=== PATIENT | male | born 1975 | race Caucasian/White ===

== ENCOUNTER 2023-06-09 05:05 | Inpatient (IN) | payer OTHER ==
[2023-06-09] MEDS ORDERED: PIPERACILLIN/TAZOB 4.5 GM 4.5 GM in DEXTROSE 5%-WATER 100 ML IVPB ONE (05:57)
[2023-06-09] MEDS ORDERED: VANCOMYCIN 1,000 MG in DEXTROSE 5%-WATER - 250 ML IVPB ONE (05:57)
[2023-06-09] MEDS ORDERED: SODIUM CHLORIDE 0.9% 500 ML INFUS.BAG IV ONE ×2 (06:01→06:49)
[2023-06-09] MEDS ORDERED: ACETAMINOPHEN 1000 MG/100 ML BAG IVPB ONE (06:01)
[2023-06-09] MEDS ORDERED: PIPERACILLIN/TAZOB 4.5 GM 4.5 GM/100 ML BAG IVPB ONE (06:20)
[2023-06-09] MEDS ORDERED: ACETAMINOPHEN INJECTION 100 ML IVPB ONE ×2 (06:20→18:02)
[2023-06-09 06:32] LABS: HEMATOCRIT 28.8 % (35.4-49); HEMOGLOBIN 9.5 GM/dL (11.7-16.9); MCH 32.3 pg (25.7-33.7); MCHC 33.1 g/dl (32.0-35.9); MEAN CELL VOLUME 97.7 fl (80-96); MEAN PLT VOLUME 8.2 fl (7.5-11.1); PLATELET COUNT 278 10^3/uL (134-434); RBC 2.95 M/mm3 (4.00-5.60); RDW 13.1 % (11.9-15.9); WHITE BLOOD COUNT 17.7 K/mm3 (4.0-10.0)
[2023-06-09 06:43] LABS: INR 1.37 (0.83-1.09); PROTHROMBIN TIME (PATIENT) 15.8 SEC (9.7-13.0)
[2023-06-09 06:44] LABS: ACTIVATED PTT 35.9 SECONDS (25.2-36.5)
[2023-06-09 07:05] LABS: CHLORIDE 107 mmol/L (98-107); POTASSIUM 5.5 mmol/L (3.5-5.1); SODIUM 135 mmol/L (136-145)
[2023-06-09 07:07] LABS: CALCIUM 7.3 mg/dL (8.5-10.1)
[2023-06-09 07:09] LABS: ALBUMIN 1.3 g/dl (3.4-5.0); ANION GAP 7 mmol/L (4-13); BLOOD UREA NITROGEN 40.6 mg/dL (7-18); CO2 20 mmol/L (21-32); GLUCOSE,RANDOM 94 mg/dL (74-106)
[2023-06-09 07:11] LABS: CREATININE 2.2 mg/dL (0.55-1.3); SGOT/AST 39 U/L (15-37); SGPT/ALT 35 U/L (13-61)
[2023-06-09 07:13] LABS: BILIRUBIN,TOTAL 0.5 mg/dL (0.2-1)
[2023-06-09 07:15] LABS: ALK PHOS 858 U/L (45-117)
[2023-06-09] MEDS ORDERED: VANCOMYCIN 1 GRAM (PRE-DOCKED) 1,000 MG/250 ML BAG IVPB ONE ×2 (07:44→07:54)
[2023-06-09 08:34] LABS: EPI CELLS >36 /uL (0-25.1); HYALINE CASTS 4 /uL (0-3.1); PH,URINE 5.5 (5.0-8.0); URINE APPEARANCE CLOUDY; URINE BACTERIA 9 /uL (0-1359); URINE BILIRUBIN NEGATIVE (NEGATIVE); URINE COLOR YELLOW; URINE GLUCOSE (UA) 1+ (NEGATIVE); URINE KETONE TRACE (NEGATIVE); URINE LEUK ESTERASE NEGATIVE (NEGATIVE); URINE NITRITE NEGATIVE (NEGATIVE); URINE PROTEIN 4+ (NEGATIVE); URINE UROBILINOGEN 0.2 mg/dL (0.2-1.0); URINE WBC 50 /uL (0-25.8)
[2023-06-09 08:52] LABS: URINE CRYSTALS NEGATIVE /hpf; URINE RBC 51.8 /uL (0-23.9)
[2023-06-09 09:31] LABS: ANISOCYTOSIS 1+; MACROCYTOSIS 0
[2023-06-09 10:26] LABS: CALCIUM 7.1 mg/dL (8.5-10.1); POTASSIUM 5.1 mmol/L (3.5-5.1)
[2023-06-09 10:27] LABS: BLOOD UREA NITROGEN 37.2 mg/dL (7-18)
[2023-06-09 10:30] LABS: CREATININE 2.1 mg/dL (0.55-1.3)
[2023-06-09] MEDS ORDERED: PIPERACILLIN/TAZOB 2.25 GM 2.25 GM/50 ML BAG IVPB ONE (13:56)
[2023-06-09] MEDS ORDERED: VANCOMYCIN 1,000 MG VIAL (RESTRICTED TO ID ONLY) IVPB ONE (14:00)
[2023-06-09] MEDS ORDERED: ACETAMINOPHEN 1000 MG/100 ML BAG IVPB PRN (14:27)
[2023-06-09] MEDS ORDERED: PIPERACILLIN/TAZOB 2.25 GM 2.25 GM in DEXTROSE 5%-WATER - 50 ML IVPB SCH ×2 (15:00→21:00)
[2023-06-09] MEDS ORDERED: LIDOCAINE HCL 1%, 10 MG/ML (20ML VIAL) ONE (15:05)
[2023-06-09] MEDS ORDERED: BUPIVACAINE HCL/PF 0.5% (5MG/ML) 10 ML VIAL ONE (15:06)
[2023-06-09] MEDS ORDERED: MIDAZOLAM HCL 2 MG/2 ML SINGLE DOSE VIAL ONE ×2 (15:29→15:36)
[2023-06-09] MEDS ORDERED: PROPOFOL 20 ML ONE ×2 (15:29→15:59)
[2023-06-09] MEDS ORDERED: BUPIVACAINE HCL/PF 0.5% (5 MG/ML) 30 ML VIAL IJ ONE (15:30)
[2023-06-09] MEDS ORDERED: LIDOCAINE HCL 1%, 10 MG/ML (20ML VIAL) INF ONE (15:30)
[2023-06-09] MEDS ORDERED: VANCOMYCIN/WATER FOR INJ (PEG) 1,000 MG/200 ML BAG IVPB SCH (15:45)
[2023-06-09] MEDS ORDERED: THROMBIN (BOVINE) 5,000 UNIT VIAL TP ONE (16:00)
[2023-06-09] MEDS ORDERED: GENTAMICIN SO4 80 MG/2 ML VIAL ONE (16:05)
[2023-06-09] MEDS ORDERED: VANCOMYCIN 1,000 MG VIAL (RESTRICTED TO ID ONLY) ONE (16:14)
[2023-06-09] MEDS ORDERED: LACTATED RINGERS SOLUTION 1,000 ML IV SCH (16:45)
[2023-06-09 17:44] LABS: HEMATOCRIT 28.1 % (35.4-49); HEMOGLOBIN 9.4 GM/dL (11.7-16.9); MCH 32.2 pg (25.7-33.7); MCHC 33.3 g/dl (32.0-35.9); MEAN CELL VOLUME 96.5 fl (80-96); PLATELET COUNT 243 10^3/uL (134-434); RBC 2.91 M/mm3 (4.00-5.60); RDW 13.5 % (11.9-15.9); WHITE BLOOD COUNT 20.5 K/mm3 (4.0-10.0)
[2023-06-09] MEDS ORDERED: FENTANYL CITRATE/PF 50 MCG/ML VIAL ONE ×2 (17:48→17:55)
[2023-06-09] MEDS: ACETAMINOPHEN 1000 MG/100 ML BAG IVPB PRN (18:02)
[2023-06-09 18:23] LABS: ANISOCYTOSIS 0; MACROCYTOSIS 0; OVALOCYTE 1+; PLATELET ESTIMATE NORMAL; TEAR DROP CELLS 1+
[2023-06-09] MEDS: PIPERACILLIN/TAZOB 2.25 GM 2.25 GM in DEXTROSE 5%-WATER - 50 ML IVPB SCH (22:07)
[2023-06-10] MEDS: PIPERACILLIN/TAZOB 2.25 GM 2.25 GM in DEXTROSE 5%-WATER - 50 ML IVPB SCH ×3 (02:30→22:41)
[2023-06-10] MEDS: ACETAMINOPHEN 1000 MG/100 ML BAG IVPB PRN (04:06)
[2023-06-10] MEDS ORDERED: VANCOMYCIN/WATER FOR INJ (PEG) 1,000 MG/200 ML BAG IVPB SCH ×2 (08:00→14:00)
[2023-06-10 09:25] LABS: HEMATOCRIT 25.6 % (35.4-49); HEMOGLOBIN 8.7 GM/dL (11.7-16.9); MCH 32.9 pg (25.7-33.7); MEAN CELL VOLUME 96.7 fl (80-96); MEAN PLT VOLUME 8.7 fl (7.5-11.1); PLATELET COUNT 232 10^3/uL (134-434); RBC 2.65 M/mm3 (4.00-5.60); RDW 13.4 % (11.9-15.9); WHITE BLOOD COUNT 19.5 K/mm3 (4.0-10.0)
[2023-06-10 09:51] LABS: POTASSIUM 5.1 mmol/L (3.5-5.1)
[2023-06-10 10:19] LABS: ALBUMIN 1.1 g/dl (3.4-5.0); BLOOD UREA NITROGEN 39.9 mg/dL (7-18); CALCIUM 7.4 mg/dL (8.5-10.1); MAGNESIUM 2.5 mg/dL (1.8-2.4)
[2023-06-10 10:22] LABS: CREATININE 2.3 mg/dL (0.55-1.3); PHOSPHOROUS 4.9 mg/dL (2.5-4.9)
[2023-06-10 10:23] LABS: BILIRUBIN,TOTAL 0.8 mg/dL (0.2-1); TOT PROT 5.3 g/dl (6.4-8.2)
[2023-06-10] MEDS ORDERED: VANCOMYCIN 1,000 MG in DEXTROSE 5%-WATER - 250 ML IVPB SCH (15:15)
[2023-06-11] MEDS: PIPERACILLIN/TAZOB 2.25 GM 2.25 GM in DEXTROSE 5%-WATER - 50 ML IVPB SCH ×3 (02:33→14:02)
[2023-06-11] MEDS: LACTOBACILLUS ACIDOPHILUS 1 TABLET PO SCH (09:08)
[2023-06-11] MEDS: VITAMIN B COMP W-C 1 EA TABLET (NEPHRO-VITE) PO SCH (09:08)
[2023-06-11 09:44] LABS: BASO % 0.3 % (0-2.0); EOS % 2.3 % (0-4.5); HEMATOCRIT 24.5 % (35.4-49); LYMPH % 6.6 % (8-40); MCH 32.5 pg (25.7-33.7); MCHC 32.6 g/dl (32.0-35.9); MEAN CELL VOLUME 99.8 fl (80-96); MEAN PLT VOLUME 7.6 fl (7.5-11.1); MONO % 3.9 % (3.8-10.2); NEUT % 86.9 % (42.8-82.8); PLATELET COUNT 230 10^3/uL (134-434); RBC 2.46 M/mm3 (4.00-5.60); RDW 13.4 % (11.9-15.9); WHITE BLOOD COUNT 11.2 K/mm3 (4.0-10.0)
[2023-06-11 10:19] LABS: POTASSIUM 4.7 mmol/L (3.5-5.1)
[2023-06-11 10:26] LABS: BLOOD UREA NITROGEN 34.7 mg/dL (7-18)
[2023-06-11 10:27] LABS: ALBUMIN 1.1 g/dl (3.4-5.0); BILIRUBIN,TOTAL 0.5 mg/dL (0.2-1); PHOSPHOROUS 4.1 mg/dL (2.5-4.9)
[2023-06-11 10:28] LABS: TOT PROT 5.3 g/dl (6.4-8.2)
[2023-06-11 10:29] LABS: CALCIUM 7.7 mg/dL (8.5-10.1); CREATININE 2.5 mg/dL (0.55-1.3)
[2023-06-11 10:30] LABS: MAGNESIUM 2.4 mg/dL (1.8-2.4)
[2023-06-11] MEDS ORDERED: VANCOMYCIN/WATER FOR INJ (PEG) 1,000 MG/200 ML BAG IVPB ONE (13:00)
[2023-06-11] MEDS ORDERED: FUROSEMIDE 40 MG/4 ML INJECTABLE VIAL IVPUSH ONE (13:15)
[2023-06-11] MEDS ORDERED: ACETAMINOPHEN 1000 MG/100 ML BAG IVPB PRN (18:54)
[2023-06-11] MEDS: HEPARIN NA (PORCINE) 5,000 UNITS/ML 1ML VIAL SQ SCH (22:24)
[2023-06-12 09:10] LABS: HEMATOCRIT 24.9 % (35.4-49); HEMOGLOBIN 8.1 GM/dL (11.7-16.9); MCH 32.4 pg (25.7-33.7); MCHC 32.8 g/dl (32.0-35.9); MEAN PLT VOLUME 8.1 fl (7.5-11.1); PLATELET COUNT 237 10^3/uL (134-434); RBC 2.51 M/mm3 (4.00-5.60); RDW 13.2 % (11.9-15.9); WHITE BLOOD COUNT 7.7 K/mm3 (4.0-10.0)
[2023-06-12] MEDS: HEPARIN NA (PORCINE) 5,000 UNITS/ML 1ML VIAL SQ SCH ×2 (09:16→22:12)
[2023-06-12] MEDS: PIPERACILLIN/TAZOB 2.25 GM 2.25 GM in DEXTROSE 5%-WATER - 50 ML IVPB SCH ×2 (09:16→14:02)
[2023-06-12] MEDS: LACTOBACILLUS ACIDOPHILUS 1 TABLET PO SCH (09:16)
[2023-06-12] MEDS: VITAMIN B COMP W-C 1 EA TABLET (NEPHRO-VITE) PO SCH (09:16)
[2023-06-12 09:18] LABS: POTASSIUM 4.7 mmol/L (3.5-5.1)
[2023-06-12 09:23] LABS: ALBUMIN 1.1 g/dl (3.4-5.0)
[2023-06-12 09:24] LABS: BLOOD UREA NITROGEN 37.6 mg/dL (7-18); CALCIUM 7.4 mg/dL (8.5-10.1); MAGNESIUM 2.5 mg/dL (1.8-2.4)
[2023-06-12 09:26] LABS: CREATININE 2.1 mg/dL (0.55-1.3)
[2023-06-12 09:27] LABS: PHOSPHOROUS 3.9 mg/dL (2.5-4.9)
[2023-06-12 09:28] LABS: BILIRUBIN,TOTAL 0.5 mg/dL (0.2-1); TOT PROT 5.6 g/dl (6.4-8.2)
[2023-06-12] MEDS ORDERED: ACETAMINOPHEN 500 MG TABLET (FP) PO PRN (11:30)
[2023-06-13 09:45] LABS: HEMOGLOBIN 7.6 GM/dL (11.7-16.9); MCH 32.5 pg (25.7-33.7); MCHC 33.2 g/dl (32.0-35.9); MEAN CELL VOLUME 97.9 fl (80-96); MEAN PLT VOLUME 7.8 fl (7.5-11.1); PLATELET COUNT 242 10^3/uL (134-434); RBC 2.35 M/mm3 (4.00-5.60); RDW 13.2 % (11.9-15.9); WHITE BLOOD COUNT 6.2 K/mm3 (4.0-10.0)
[2023-06-13] MEDS: HEPARIN NA (PORCINE) 5,000 UNITS/ML 1ML VIAL SQ SCH ×2 (10:06→22:37)
[2023-06-13] MEDS: LACTOBACILLUS ACIDOPHILUS 1 TABLET PO SCH (10:07)
[2023-06-13] MEDS: VITAMIN B COMP W-C 1 EA TABLET (NEPHRO-VITE) PO SCH (10:07)
[2023-06-13 10:08] LABS: POTASSIUM 4.8 mmol/L (3.5-5.1)
[2023-06-13 10:14] LABS: BLOOD UREA NITROGEN 33.7 mg/dL (7-18)
[2023-06-13 10:16] LABS: CREATININE 1.9 mg/dL (0.55-1.3)
[2023-06-13 10:41] LABS: CALCIUM 7.5 mg/dL (8.5-10.1)
[2023-06-13] MEDS ORDERED: VANCOMYCIN/WATER FOR INJ (PEG) 1,000 MG/200 ML BAG IVPB ONE (16:00)
[2023-06-13] MEDS: PIPERACILLIN/TAZOB 2.25 GM 2.25 GM in DEXTROSE 5%-WATER - 50 ML IVPB SCH (18:30)
[2023-06-13 21:08] LABS: ANTIGLOMERULAR BASEMENT MEN.AB 0.2 units (0.0-0.9)
[2023-06-14] MEDS: PIPERACILLIN/TAZOB 2.25 GM 2.25 GM in DEXTROSE 5%-WATER - 50 ML IVPB SCH ×3 (01:11→17:32)
[2023-06-14 09:19] LABS: BASO % 0.6 % (0-2.0); EOS % 7.1 % (0-4.5); HEMATOCRIT 20.9 % (35.4-49); HEMOGLOBIN 7.1 GM/dL (11.7-16.9); LYMPH % 13.6 % (8-40); MCH 32.2 pg (25.7-33.7); MCHC 33.7 g/dl (32.0-35.9); MEAN CELL VOLUME 95.5 fl (80-96); MEAN PLT VOLUME 7.5 fl (7.5-11.1); MONO % 5.6 % (3.8-10.2); NEUT % 73.1 % (42.8-82.8); PLATELET COUNT 219 10^3/uL (134-434); RBC 2.19 M/mm3 (4.00-5.60); RDW 13.4 % (11.9-15.9); WHITE BLOOD COUNT 5.6 K/mm3 (4.0-10.0)
[2023-06-14 10:03] LABS: POTASSIUM 4.5 mmol/L (3.5-5.1)
[2023-06-14 10:12] LABS: BILIRUBIN,TOTAL 0.6 mg/dL (0.2-1); TOT PROT 5.3 g/dl (6.4-8.2)
[2023-06-14 10:21] LABS: CALCIUM 7.6 mg/dL (8.5-10.1)
[2023-06-14 10:22] LABS: ALBUMIN 1.2 g/dl (3.4-5.0); BLOOD UREA NITROGEN 33.8 mg/dL (7-18)
[2023-06-14 10:24] LABS: CREATININE 1.8 mg/dL (0.55-1.3)
[2023-06-14] MEDS: LACTOBACILLUS ACIDOPHILUS 1 TABLET PO SCH (11:43)
[2023-06-14] MEDS: VITAMIN B COMP W-C 1 EA TABLET (NEPHRO-VITE) PO SCH (11:43)
[2023-06-14] MEDS: HEPARIN NA (PORCINE) 5,000 UNITS/ML 1ML VIAL SQ SCH (11:43)
[2023-06-14] MEDS: SODIUM BICARBONATE 650 MG TABLET PO SCH ×2 (14:20→22:04)
[2023-06-14 16:30] VITALS: BMI 30.8
[2023-06-14] MEDS: amLODIPine BESYLATE 10 MG TABLET (FP) PO SCH (17:29)
[2023-06-14 17:44] LABS: HIV INTERPRETATION NEGATIVE (NEGATIVE)
[2023-06-14 18:01] LABS: RETICULOCYTES 0.74 % (0.5-1.5)
[2023-06-14 18:07] LABS: ATYPICAL pANCA <1:20 titer (Neg:<1:20); C-ANCA <1:20 titer (Neg:<1:20)
[2023-06-15] MEDS: PIPERACILLIN/TAZOB 2.25 GM 2.25 GM in DEXTROSE 5%-WATER - 50 ML IVPB SCH ×3 (01:18→17:07)
[2023-06-15] MEDS ORDERED: FLU VACCINE (FLULAVAL) PF 60 MCG/0.5 ML SYRINGE 2023-2024 IM ONE (09:38)
[2023-06-15 10:42] LABS: BASO % 0.9 % (0-2.0); EOS % 8.6 % (0-4.5); HEMATOCRIT 22.7 % (35.4-49); HEMOGLOBIN 7.4 GM/dL (11.7-16.9); LYMPH % 14.3 % (8-40); MCH 31.9 pg (25.7-33.7); MCHC 32.6 g/dl (32.0-35.9); MEAN CELL VOLUME 97.9 fl (80-96); MEAN PLT VOLUME 7.7 fl (7.5-11.1); MONO % 6.8 % (3.8-10.2); NEUT % 69.4 % (42.8-82.8); PLATELET COUNT 227 10^3/uL (134-434); RBC 2.32 M/mm3 (4.00-5.60); RDW 13.2 % (11.9-15.9); WHITE BLOOD COUNT 4.8 K/mm3 (4.0-10.0)
[2023-06-15 11:02] LABS: POTASSIUM 4.1 mmol/L (3.5-5.1)
[2023-06-15] MEDS: LACTOBACILLUS ACIDOPHILUS 1 TABLET PO SCH (11:05)
[2023-06-15] MEDS: SODIUM BICARBONATE 650 MG TABLET PO SCH ×2 (11:05→21:34)
[2023-06-15] MEDS: VITAMIN B COMP W-C 1 EA TABLET (NEPHRO-VITE) PO SCH (11:05)
[2023-06-15] MEDS: amLODIPine BESYLATE 10 MG TABLET (FP) PO SCH (11:05)
[2023-06-15 11:09] LABS: CALCIUM 7.2 mg/dL (8.5-10.1)
[2023-06-15 11:10] LABS: ALBUMIN 1.2 g/dl (3.4-5.0); BLOOD UREA NITROGEN 34.7 mg/dL (7-18); MAGNESIUM 2.3 mg/dL (1.8-2.4)
[2023-06-15 11:13] LABS: CREATININE 1.9 mg/dL (0.55-1.3); PHOSPHOROUS 3.5 mg/dL (2.5-4.9)
[2023-06-15 11:14] LABS: BILIRUBIN,TOTAL 0.4 mg/dL (0.2-1); TOT PROT 5.4 g/dl (6.4-8.2)
[2023-06-15] MEDS: LISINOPRIL 5 MG TABLET PO SCH (13:21)
[2023-06-16] MEDS: PIPERACILLIN/TAZOB 2.25 GM 2.25 GM in DEXTROSE 5%-WATER - 50 ML IVPB SCH ×3 (01:52→17:38)
[2023-06-16 08:18] LABS: BASO % 1.1 % (0-2.0); EOS % 9.3 % (0-4.5); HEMATOCRIT 23.9 % (35.4-49); LYMPH % 15.2 % (8-40); MCH 32.7 pg (25.7-33.7); MCHC 33.6 g/dl (32.0-35.9); MEAN CELL VOLUME 97.2 fl (80-96); MEAN PLT VOLUME 7.7 fl (7.5-11.1); MONO % 5.2 % (3.8-10.2); NEUT % 69.2 % (42.8-82.8); PLATELET COUNT 287 10^3/uL (134-434); RBC 2.46 M/mm3 (4.00-5.60); RDW 13.3 % (11.9-15.9); WHITE BLOOD COUNT 6.9 K/mm3 (4.0-10.0)
[2023-06-16 08:37] LABS: POTASSIUM 4.1 mmol/L (3.5-5.1)
[2023-06-16 08:51] LABS: ALBUMIN 1.4 g/dl (3.4-5.0); BLOOD UREA NITROGEN 35.7 mg/dL (7-18)
[2023-06-16 08:52] LABS: BILIRUBIN,TOTAL 0.4 mg/dL (0.2-1)
[2023-06-16 08:53] LABS: CALCIUM 7.4 mg/dL (8.5-10.1)
[2023-06-16 08:54] LABS: CREATININE 2.1 mg/dL (0.55-1.3); PHOSPHOROUS 3.7 mg/dL (2.5-4.9)
[2023-06-16 08:55] LABS: MAGNESIUM 2.3 mg/dL (1.8-2.4)
[2023-06-16 09:04] LABS: TOT PROT 5.6 g/dl (6.4-8.2)
[2023-06-16] MEDS: SODIUM BICARBONATE 650 MG TABLET PO SCH ×2 (09:51→22:32)
[2023-06-16] MEDS: amLODIPine BESYLATE 10 MG TABLET (FP) PO SCH (09:51)
[2023-06-16] MEDS: LACTOBACILLUS ACIDOPHILUS 1 TABLET PO SCH (09:51)
[2023-06-16] MEDS: LISINOPRIL 5 MG TABLET PO SCH (09:51)
[2023-06-16] MEDS: VITAMIN B COMP W-C 1 EA TABLET (NEPHRO-VITE) PO SCH (09:51)
[2023-06-17] MEDS: PIPERACILLIN/TAZOB 2.25 GM 2.25 GM in DEXTROSE 5%-WATER - 50 ML IVPB SCH ×3 (01:58→18:01)
[2023-06-17] MEDS: VITAMIN B COMP W-C 1 EA TABLET (NEPHRO-VITE) PO SCH (09:45)
[2023-06-17] MEDS: amLODIPine BESYLATE 10 MG TABLET (FP) PO SCH (09:45)
[2023-06-17] MEDS: LISINOPRIL 5 MG TABLET PO SCH (09:45)
[2023-06-17] MEDS: LACTOBACILLUS ACIDOPHILUS 1 TABLET PO SCH (09:45)
[2023-06-17] MEDS: SODIUM BICARBONATE 650 MG TABLET PO SCH ×2 (09:45→21:06)
[2023-06-17 10:51] LABS: BASO % 1.5 % (0-2.0); EOS % 9.8 % (0-4.5); HEMATOCRIT 23.3 % (35.4-49); HEMOGLOBIN 7.7 GM/dL (11.7-16.9); LYMPH % 16.6 % (8-40); MCH 32.1 pg (25.7-33.7); MEAN CELL VOLUME 97.3 fl (80-96); MEAN PLT VOLUME 7.8 fl (7.5-11.1); NEUT % 66.1 % (42.8-82.8); PLATELET COUNT 298 10^3/uL (134-434); RBC 2.39 M/mm3 (4.00-5.60); RDW 13.4 % (11.9-15.9); WHITE BLOOD COUNT 5.4 K/mm3 (4.0-10.0)
[2023-06-17 11:09] LABS: POTASSIUM 3.9 mmol/L (3.5-5.1)
[2023-06-17 11:20] LABS: CALCIUM 7.8 mg/dL (8.5-10.1)
[2023-06-17 11:21] LABS: ALBUMIN 1.4 g/dl (3.4-5.0)
[2023-06-17 11:23] LABS: CREATININE 2.2 mg/dL (0.55-1.3); PHOSPHOROUS 3.8 mg/dL (2.5-4.9)
[2023-06-17 11:41] LABS: MAGNESIUM 2.5 mg/dL (1.8-2.4)
[2023-06-17 12:02] LABS: BILIRUBIN,TOTAL 0.3 mg/dL (0.2-1)
[2023-06-17] MEDS: ALBUMIN HUMAN 25% 12.5 GM/50 ML VIAL IV SCH ×4 (19:55→21:33)
[2023-06-17 21:02] LABS: BF WBC & OTHER NUCLEATED CELLS 181 /mm3; BODY FLUID MACROPHAGES 2 %; BODY FLUID MESOTHELIAL 5 %; BODY FLUID MONOCYTE 30 %
[2023-06-18] MEDS: PIPERACILLIN/TAZOB 2.25 GM 2.25 GM in DEXTROSE 5%-WATER - 50 ML IVPB SCH ×3 (05:57→17:53)
[2023-06-18 10:08] LABS: BASO % 1.4 % (0-2.0); EOS % 7.9 % (0-4.5); HEMATOCRIT 22.8 % (35.4-49); HEMOGLOBIN 7.7 GM/dL (11.7-16.9); LYMPH % 16.9 % (8-40); MCH 32.3 pg (25.7-33.7); MCHC 33.7 g/dl (32.0-35.9); MEAN PLT VOLUME 7.6 fl (7.5-11.1); MONO % 5.3 % (3.8-10.2); NEUT % 68.5 % (42.8-82.8); PLATELET COUNT 281 10^3/uL (134-434); RBC 2.37 M/mm3 (4.00-5.60); RDW 13.7 % (11.9-15.9); WHITE BLOOD COUNT 5.2 K/mm3 (4.0-10.0)
[2023-06-18] MEDS: LISINOPRIL 5 MG TABLET PO SCH (10:21)
[2023-06-18] MEDS: amLODIPine BESYLATE 10 MG TABLET (FP) PO SCH (10:21)
[2023-06-18] MEDS: LACTOBACILLUS ACIDOPHILUS 1 TABLET PO SCH (10:21)
[2023-06-18] MEDS: VITAMIN B COMP W-C 1 EA TABLET (NEPHRO-VITE) PO SCH (10:21)
[2023-06-18] MEDS: SODIUM BICARBONATE 650 MG TABLET PO SCH ×2 (10:21→21:17)
[2023-06-18 10:28] LABS: BLOOD UREA NITROGEN 40.8 mg/dL (7-18); CALCIUM 7.6 mg/dL (8.5-10.1); MAGNESIUM 2.5 mg/dL (1.8-2.4)
[2023-06-18 10:31] LABS: CREATININE 2.3 mg/dL (0.55-1.3); PHOSPHOROUS 3.8 mg/dL (2.5-4.9)
[2023-06-18 10:33] LABS: BILIRUBIN,TOTAL 0.4 mg/dL (0.2-1); TOT PROT 6.2 g/dl (6.4-8.2)
[2023-06-18 10:37] LABS: ALBUMIN 1.8 g/dl (3.4-5.0)
[2023-06-19] MEDS: PIPERACILLIN/TAZOB 2.25 GM 2.25 GM in DEXTROSE 5%-WATER - 50 ML IVPB SCH ×3 (01:34→17:15)
[2023-06-19 07:14] VITALS: RESP 18
[2023-06-19] MEDS: LISINOPRIL 5 MG TABLET PO SCH (09:00)
[2023-06-19] MEDS: LACTOBACILLUS ACIDOPHILUS 1 TABLET PO SCH (09:00)
[2023-06-19] MEDS: amLODIPine BESYLATE 10 MG TABLET (FP) PO SCH (09:00)
[2023-06-19] MEDS: VITAMIN B COMP W-C 1 EA TABLET (NEPHRO-VITE) PO SCH (09:00)
[2023-06-19] MEDS: SODIUM BICARBONATE 650 MG TABLET PO SCH ×2 (09:00→21:31)
[2023-06-19 09:03] LABS: BASO % 1.4 % (0-2.0); EOS % 7.7 % (0-4.5); HEMATOCRIT 20.3 % (35.4-49); LYMPH % 18.8 % (8-40); MCH 32.9 pg (25.7-33.7); MCHC 34.6 g/dl (32.0-35.9); MEAN CELL VOLUME 95.1 fl (80-96); MEAN PLT VOLUME 7.9 fl (7.5-11.1); MONO % 6.1 % (3.8-10.2); PLATELET COUNT 250 10^3/uL (134-434); RBC 2.14 M/mm3 (4.00-5.60); RDW 13.7 % (11.9-15.9); WHITE BLOOD COUNT 5.3 K/mm3 (4.0-10.0)
[2023-06-19 09:05] LABS: POTASSIUM 4.4 mmol/L (3.5-5.1)
[2023-06-19 09:07] LABS: CALCIUM 7.6 mg/dL (8.5-10.1)
[2023-06-19 09:08] LABS: ALBUMIN 1.7 g/dl (3.4-5.0)
[2023-06-19 09:11] LABS: CREATININE 2.6 mg/dL (0.55-1.3)
[2023-06-19 09:12] LABS: BILIRUBIN,TOTAL 0.5 mg/dL (0.2-1)
[2023-06-19 09:13] LABS: TOT PROT 5.7 g/dl (6.4-8.2)
[2023-06-20] MEDS: PIPERACILLIN/TAZOB 2.25 GM 2.25 GM in DEXTROSE 5%-WATER - 50 ML IVPB SCH ×3 (01:21→19:58)
[2023-06-20] MEDS: SODIUM BICARBONATE 650 MG TABLET PO SCH ×2 (09:42→21:00)
[2023-06-20] MEDS: LACTOBACILLUS ACIDOPHILUS 1 TABLET PO SCH (09:42)
[2023-06-20] MEDS: amLODIPine BESYLATE 10 MG TABLET (FP) PO SCH (09:42)
[2023-06-20] MEDS: VITAMIN B COMP W-C 1 EA TABLET (NEPHRO-VITE) PO SCH (09:42)
[2023-06-20] MEDS: LISINOPRIL 5 MG TABLET PO SCH (09:42)
[2023-06-20 16:39] LABS: BASO % 1.1 % (0-2.0); EOS % 5.5 % (0-4.5); HEMATOCRIT 23.1 % (35.4-49); HEMOGLOBIN 7.9 GM/dL (11.7-16.9); LYMPH % 11.8 % (8-40); MCH 32.6 pg (25.7-33.7); MCHC 34.2 g/dl (32.0-35.9); MEAN CELL VOLUME 95.5 fl (80-96); MEAN PLT VOLUME 7.7 fl (7.5-11.1); MONO % 7.1 % (3.8-10.2); NEUT % 74.5 % (42.8-82.8); PLATELET COUNT 290 10^3/uL (134-434); RBC 2.42 M/mm3 (4.00-5.60); RDW 14.1 % (11.9-15.9)
[2023-06-20] MEDS ORDERED: ACETAMINOPHEN 325 MG TABLET (FP) PO ONE (23:16)
[2023-06-21] MEDS: PIPERACILLIN/TAZOB 2.25 GM 2.25 GM in DEXTROSE 5%-WATER - 50 ML IVPB SCH (02:13)
[2023-06-21] MEDS ORDERED: levoFLOXacin 750 MG TABLET PO SCH (08:15)
[2023-06-21] MEDS ORDERED: AMOX TR/POT CLAV 500MG/125MG TABLETS (FP) PO SCH (08:24)
[2023-06-21] MEDS ORDERED: PHYTONADIONE 10 MG/1 ML AMP IVPB ONE (09:15)
[2023-06-21 09:39] LABS: BASO % 0.8 % (0-2.0); EOS % 4.9 % (0-4.5); HEMATOCRIT 20.5 % (35.4-49); HEMOGLOBIN 7.1 GM/dL (11.7-16.9); LYMPH % 12.9 % (8-40); MCH 33.2 pg (25.7-33.7); MCHC 34.6 g/dl (32.0-35.9); MEAN CELL VOLUME 95.9 fl (80-96); MONO % 5.7 % (3.8-10.2); NEUT % 75.7 % (42.8-82.8); PLATELET COUNT 262 10^3/uL (134-434); RBC 2.14 M/mm3 (4.00-5.60); WHITE BLOOD COUNT 8.4 K/mm3 (4.0-10.0)
[2023-06-21 09:44] LABS: POTASSIUM 4.2 mmol/L (3.5-5.1)
[2023-06-21 09:51] LABS: ALBUMIN 1.6 g/dl (3.4-5.0); CALCIUM 7.8 mg/dL (8.5-10.1); MAGNESIUM 2.5 mg/dL (1.8-2.4)
[2023-06-21 09:54] LABS: BLOOD UREA NITROGEN 40.9 mg/dL (7-18)
[2023-06-21 09:55] LABS: CREATININE 2.4 mg/dL (0.55-1.3)
[2023-06-21 09:56] LABS: BILIRUBIN,TOTAL 0.7 mg/dL (0.2-1); TOT PROT 5.8 g/dl (6.4-8.2)
[2023-06-21] MEDS: LISINOPRIL 5 MG TABLET PO SCH (10:06)
[2023-06-21] MEDS: SODIUM BICARBONATE 650 MG TABLET PO SCH (10:06)
[2023-06-21] MEDS: VITAMIN B COMP W-C 1 EA TABLET (NEPHRO-VITE) PO SCH (10:06)
[2023-06-21] MEDS: amLODIPine BESYLATE 10 MG TABLET (FP) PO SCH (10:06)
[2023-06-21] MEDS: LACTOBACILLUS ACIDOPHILUS 1 TABLET PO SCH (10:07)
[2023-06-21] MEDS ORDERED: LISINOPRIL 5 MG TABLET PO ONE (11:30)
[2023-06-21 15:12] LABS: BODY FLUID ALBUMIN 0.5 g/dL (Not Estab.)
[2023-06-21 15:25] VITALS: BP 151/83; PULSE 97; TEMP 98.4
[2023-06-22] MEDS ORDERED: LISINOPRIL 10 MG TABLET PO SCH (10:00)
== END 2023-06-21 14:51 | disposition home or self-care (01) | DRG 710 ==
LOC: JER 05:05 → JERBED 07:53 → J5S 19:55
PROVIDERS: ADMIT Internal Medicine; ATTEND Internal Medicine
PROC: 0W9G3ZZ Drainage of Peritoneal Cavity, Percutaneous Approach (ICD-10-PCS; 2023-06-09)
PROC: 0Y6P0Z0 Detachment at Right 1st Toe, Complete, Open Approach (ICD-10-PCS; principal; 2023-06-09 15:30)
DX: A41.89 Other specified sepsis (principal); I96 Gangrene, not elsewhere classified; N17.9 Acute kidney failure, unspecified; J90 Pleural effusion, not elsewhere classified; E87.5 Hyperkalemia; E11.22 Type 2 diabetes mellitus with diabetic chronic kidney disease; D68.9 Coagulation defect, unspecified; D89.2 Hypergammaglobulinemia, unspecified; K70.31 Alcoholic cirrhosis of liver with ascites; D64.9 Anemia, unspecified; M86.8X7 Other osteomyelitis, ankle and foot; L03.031 Cellulitis of right toe; B95.61 Methicillin susceptible Staphylococcus aureus infection as the cause of diseases classified elsewhere; B95.2 Enterococcus as the cause of diseases classified elsewhere; I12.9 Hypertensive chronic kidney disease with stage 1 through stage 4 chronic kidney disease, or unspecified chronic kidney disease; N18.9 Chronic kidney disease, unspecified; R80.9 Proteinuria, unspecified; K80.20 Calculus of gallbladder without cholecystitis without obstruction; R74.8 Abnormal levels of other serum enzymes
CPT/HCPCS: 0241U-QW; 36415; 71045-TC-FY; 73590-TC-RT-FY; 73630-TC-RT-FY; 74181-TC; 76700-TC; 76775-TC; 76942-TC; 80048; 80053; 80061; 81003; 82042; 82105; 82150; 82272; 82465; 82550; 82570; 82607; 82728; 82746; 82962; 82977; 83036; 83516; 83520; 83540; 83550; 83615; 83735; 83880; 83986; 84080; 84100; 84156; 84157; 84443; 84466; 84478; 85025; 85027; 85045; 85610; 85651; 85730; 86038; 86140; 86225; 86256; 86704; 86803; 86850; 86900; 86901; 87040; 87070; 87075; 87086; 87102; 87116; 87186; 87205; 87206; 87210; 87340; 87389; 87517; 88108; 88305-TC; 88311-TC; 90686; 93005; 93010; 93306-TC; 93926-TC; 94760; 97116-GP; 99285-25; C1713; G0008; G0480; J1644; P9047

== ENCOUNTER 2023-06-29 14:12 | Inpatient (IN) | payer OTHER ==
[2023-06-29 14:23] VITALS: BMI 26.3
[2023-06-29] MEDS ORDERED: PIPERACILLIN/TAZOB 4.5 GM 4.5 GM in DEXTROSE 5%-WATER 100 ML IVPB ONE (14:56)
[2023-06-29 15:36] LABS: BASO % 1.3 % (0-2.0); EOS % 7.3 % (0-4.5); HEMATOCRIT 22.2 % (35.4-49); HEMOGLOBIN 7.2 GM/dL (11.7-16.9); LYMPH % 10.6 % (8-40); MCHC 32.3 g/dl (32.0-35.9); MEAN CELL VOLUME 98.9 fl (80-96); MEAN PLT VOLUME 8.5 fl (7.5-11.1); MONO % 5.8 % (3.8-10.2); PLATELET COUNT 265 10^3/uL (134-434); RBC 2.25 M/mm3 (4.00-5.60); RDW 14.5 % (11.9-15.9); WHITE BLOOD COUNT 6.8 K/mm3 (4.0-10.0)
[2023-06-29 15:44] LABS: INR 1.18 (0.83-1.09); PROTHROMBIN TIME (PATIENT) 13.7 SEC (9.7-13.0)
[2023-06-29 15:47] LABS: ACTIVATED PTT 35.5 SECONDS (25.2-36.5)
[2023-06-29] MEDS ORDERED: PIPERACILLIN/TAZOB 4.5 GM 4.5 GM/100 ML BAG IVPB ONE (15:50)
[2023-06-29 16:08] LABS: CHLORIDE 118 mmol/L (98-107); SODIUM 138 mmol/L (136-145)
[2023-06-29 16:10] LABS: BLOOD UREA NITROGEN 34.9 mg/dL (7-18); CO2 19 mmol/L (21-32); GLUCOSE,RANDOM 94 mg/dL (74-106)
[2023-06-29 16:11] LABS: ALBUMIN 1.8 g/dl (3.4-5.0)
[2023-06-29 16:12] LABS: ANION GAP 0 mmol/L (4-13); POTASSIUM 8.1 mmol/L (3.5-5.1)
[2023-06-29 16:14] LABS: CREATININE 2.3 mg/dL (0.55-1.3); SGOT/AST 70 U/L (15-37); SGPT/ALT 25 U/L (13-61)
[2023-06-29 16:15] LABS: BILIRUBIN,TOTAL 0.3 mg/dL (0.2-1); TOT PROT 6.6 g/dl (6.4-8.2)
[2023-06-29 16:59] LABS: ALK PHOS 515 U/L (45-117)
[2023-06-29 17:38] LABS: CREATININE 2.2 mg/dL (0.55-1.3)
[2023-06-29] MEDS ORDERED: DEXTROSE 50%-WATER - 25 GM/50 ML VIAL IVPUSH ONE (17:44)
[2023-06-29] MEDS ORDERED: INSULIN REGULAR HUMAN 100 UNITS/ML *VIAL IVPUSH ONE (17:46)
[2023-06-29] MEDS ORDERED: ALBUTEROL SO4 0.083% IH SOL 2.5 MG/3 ML VIAL.NEB. NEB ONE ×2 (17:47→18:56)
[2023-06-29] MEDS ORDERED: DEXTROSE 50%-WATER 25 GM/50 ML DISP.SYRIN ONE (18:57)
[2023-06-29] MEDS ORDERED: SODIUM ZIRCONIUM CYCLOSILICATE (LOKELMA) 10 GM PACKET ONE (20:18)
[2023-06-29] MEDS ORDERED: SODIUM ZIRCONIUM CYCLOSILICATE (LOKELMA) 5 GM PACKET PO ONE (20:30)
[2023-06-29 20:59] LABS: EPI CELLS 8 /uL (0-25.1); HYALINE CASTS 1 /uL (0-3.1); URINE APPEARANCE CLEAR; URINE BACTERIA 9 /uL (0-1359); URINE BILIRUBIN NEGATIVE (NEGATIVE); URINE COLOR YELLOW; URINE GLUCOSE (UA) TRACE (NEGATIVE); URINE KETONE NEGATIVE (NEGATIVE); URINE LEUK ESTERASE NEGATIVE (NEGATIVE); URINE NITRITE NEGATIVE (NEGATIVE); URINE PROTEIN 4+ (NEGATIVE); URINE RBC 49 /uL (0-23.9); URINE UROBILINOGEN 0.2 mg/dL (0.2-1.0); URINE WBC 31 /uL (0-25.8)
[2023-06-29] MEDS ORDERED: FUROSEMIDE 40 MG/4 ML INJECTABLE VIAL IVPUSH ONE (22:56)
[2023-06-29] MEDS: SODIUM ZIRCONIUM CYCLOSILICATE (LOKELMA) 5 GM PACKET PO SCH (23:34)
[2023-06-30 03:13] LABS: POTASSIUM 5.5 mmol/L (3.5-5.1)
[2023-06-30 03:16] LABS: ALBUMIN 1.9 g/dl (3.4-5.0); BLOOD UREA NITROGEN 32.7 mg/dL (7-18); MAGNESIUM 2.6 mg/dL (1.8-2.4)
[2023-06-30 03:19] LABS: CREATININE 2.1 mg/dL (0.55-1.3); PHOSPHOROUS 4.9 mg/dL (2.5-4.9)
[2023-06-30 03:20] LABS: BILIRUBIN,TOTAL 0.3 mg/dL (0.2-1); TOT PROT 6.4 g/dl (6.4-8.2)
[2023-06-30] MEDS: HEPARIN NA (PORCINE) 5,000 UNITS/ML 1ML VIAL SQ SCH ×3 (06:47→21:01)
[2023-06-30 06:53] LABS: POTASSIUM 5.5 mmol/L (3.5-5.1)
[2023-06-30 06:57] LABS: BLOOD UREA NITROGEN 32.1 mg/dL (7-18)
[2023-06-30 07:00] LABS: CREATININE 2.1 mg/dL (0.55-1.3)
[2023-06-30 07:02] LABS: BASO % 1.3 % (0-2.0); EOS % 13.6 % (0-4.5); HEMATOCRIT 20.7 % (35.4-49); LYMPH % 15.5 % (8-40); MCH 32.4 pg (25.7-33.7); MCHC 32.9 g/dl (32.0-35.9); MEAN CELL VOLUME 98.7 fl (80-96); MEAN PLT VOLUME 8.2 fl (7.5-11.1); MONO % 7.5 % (3.8-10.2); NEUT % 62.1 % (42.8-82.8); PLATELET COUNT 230 10^3/uL (134-434); RDW 14.2 % (11.9-15.9); WHITE BLOOD COUNT 5.8 K/mm3 (4.0-10.0)
[2023-06-30 07:17] LABS: HEMOGLOBIN 6.8 GM/dL (11.7-16.9)
[2023-06-30] MEDS ORDERED: PIPERACILLIN/TAZOB 3.375 GM 3.375 GM in DEXTROSE 5%-WATER - 50 ML IVPB SCH (09:00)
[2023-06-30] MEDS ORDERED: amLODIPine BESYLATE 5 MG TABLET (FP) PO SCH (10:00)
[2023-06-30] MEDS: SODIUM ZIRCONIUM CYCLOSILICATE (LOKELMA) 5 GM PACKET PO SCH (10:15)
[2023-06-30] MEDS: LACTOBACILLUS ACIDOPHILUS 1 TABLET PO SCH (10:15)
[2023-06-30] MEDS: VITAMIN B COMP W-C 1 EA TABLET (NEPHRO-VITE) PO SCH (10:15)
[2023-06-30] MEDS: SODIUM BICARBONATE 650 MG TABLET PO SCH ×2 (10:15→21:02)
[2023-06-30] MEDS: COLLAGENASE CLOSTRIDIUM HIST. 30 GRAMS TUBE TP SCH (12:54)
[2023-06-30] MEDS: PIPERACILLIN/TAZOB 2.25 GM 2.25 GM in DEXTROSE 5%-WATER - 50 ML IVPB SCH (17:30)
[2023-06-30] MEDS ORDERED: SODIUM ZIRCONIUM CYCLOSILICATE (LOKELMA) 5 GM PACKET PO ONE (17:49)
[2023-06-30] MEDS: NYSTATIN 100,000 UNIT/GM TOPICAL CREAM 15 GM TUBE TP SCH (21:14)
[2023-07-01] MEDS: PIPERACILLIN/TAZOB 2.25 GM 2.25 GM in DEXTROSE 5%-WATER - 50 ML IVPB SCH ×3 (01:22→17:53)
[2023-07-01] MEDS: HEPARIN NA (PORCINE) 5,000 UNITS/ML 1ML VIAL SQ SCH ×2 (05:58→14:08)
[2023-07-01 08:23] LABS: HEMATOCRIT 23.4 % (35.4-49); HEMOGLOBIN 7.8 GM/dL (11.7-16.9); MCH 32.4 pg (25.7-33.7); MCHC 33.5 g/dl (32.0-35.9); MEAN CELL VOLUME 96.6 fl (80-96); MEAN PLT VOLUME 8.3 fl (7.5-11.1); PLATELET COUNT 228 10^3/uL (134-434); RBC 2.42 M/mm3 (4.00-5.60); RDW 16.1 % (11.9-15.9); WHITE BLOOD COUNT 5.3 K/mm3 (4.0-10.0)
[2023-07-01 09:16] LABS: POTASSIUM 5.4 mmol/L (3.5-5.1)
[2023-07-01 09:25] LABS: CALCIUM 7.9 mg/dL (8.5-10.1)
[2023-07-01 09:26] LABS: ALBUMIN 1.7 g/dl (3.4-5.0)
[2023-07-01 09:29] LABS: CREATININE 2.2 mg/dL (0.55-1.3)
[2023-07-01 09:30] LABS: TOT PROT 5.6 g/dl (6.4-8.2)
[2023-07-01 09:31] LABS: BILIRUBIN,TOTAL 0.5 mg/dL (0.2-1)
[2023-07-01] MEDS: SODIUM BICARBONATE 650 MG TABLET PO SCH ×2 (09:39→21:07)
[2023-07-01] MEDS: NYSTATIN 100,000 UNIT/GM TOPICAL CREAM 15 GM TUBE TP SCH ×2 (09:39→21:07)
[2023-07-01] MEDS: LACTOBACILLUS ACIDOPHILUS 1 TABLET PO SCH (09:39)
[2023-07-01] MEDS: amLODIPine BESYLATE 10 MG TABLET (FP) PO SCH (09:39)
[2023-07-01] MEDS: VITAMIN B COMP W-C 1 EA TABLET (NEPHRO-VITE) PO SCH (09:39)
[2023-07-01] MEDS: SODIUM ZIRCONIUM CYCLOSILICATE (LOKELMA) 5 GM PACKET PO SCH (09:39)
[2023-07-01] MEDS: COLLAGENASE CLOSTRIDIUM HIST. 30 GRAMS TUBE TP SCH (09:40)
[2023-07-01] MEDS: FUROSEMIDE 40 MG TABLET (FP) PO SCH (14:08)
[2023-07-01] MEDS: PANTOPRAZOLE SODIUM 40 MG VIAL IVPUSH SCH (21:07)
[2023-07-01] MEDS ORDERED: ACETAMINOPHEN 1000 MG/100 ML BAG IVPB ONE (23:33)
[2023-07-02] MEDS: PIPERACILLIN/TAZOB 2.25 GM 2.25 GM in DEXTROSE 5%-WATER - 50 ML IVPB SCH ×3 (01:22→17:11)
[2023-07-02 07:56] LABS: HEMATOCRIT 23.2 % (35.4-49); HEMOGLOBIN 7.9 GM/dL (11.7-16.9); MCH 32.3 pg (25.7-33.7); MCHC 34.2 g/dl (32.0-35.9); MEAN CELL VOLUME 94.4 fl (80-96); PLATELET COUNT 231 10^3/uL (134-434); RBC 2.45 M/mm3 (4.00-5.60); RDW 15.9 % (11.9-15.9); WHITE BLOOD COUNT 5.4 K/mm3 (4.0-10.0)
[2023-07-02 07:58] LABS: POTASSIUM 4.8 mmol/L (3.5-5.1)
[2023-07-02 08:00] LABS: CALCIUM 7.5 mg/dL (8.5-10.1)
[2023-07-02 08:01] LABS: ALBUMIN 1.7 g/dl (3.4-5.0); BLOOD UREA NITROGEN 30.3 mg/dL (7-18)
[2023-07-02 08:04] LABS: CREATININE 2.6 mg/dL (0.55-1.3)
[2023-07-02 08:06] LABS: TOT PROT 5.8 g/dl (6.4-8.2)
[2023-07-02 08:09] LABS: BILIRUBIN,TOTAL 0.3 mg/dL (0.2-1)
[2023-07-02] MEDS: FUROSEMIDE 40 MG TABLET (FP) PO SCH (09:25)
[2023-07-02] MEDS: PANTOPRAZOLE SODIUM 40 MG VIAL IVPUSH SCH ×2 (09:25→21:05)
[2023-07-02] MEDS: SODIUM BICARBONATE 650 MG TABLET PO SCH ×2 (09:25→21:05)
[2023-07-02] MEDS: SODIUM ZIRCONIUM CYCLOSILICATE (LOKELMA) 5 GM PACKET PO SCH (09:25)
[2023-07-02] MEDS: amLODIPine BESYLATE 10 MG TABLET (FP) PO SCH (09:25)
[2023-07-02] MEDS: LACTOBACILLUS ACIDOPHILUS 1 TABLET PO SCH (09:26)
[2023-07-02] MEDS: COLLAGENASE CLOSTRIDIUM HIST. 30 GRAMS TUBE TP SCH (09:26)
[2023-07-02] MEDS: NYSTATIN 100,000 UNIT/GM TOPICAL CREAM 15 GM TUBE TP SCH ×2 (09:26→21:05)
[2023-07-02] MEDS: VITAMIN B COMP W-C 1 EA TABLET (NEPHRO-VITE) PO SCH (09:26)
[2023-07-03] MEDS: PIPERACILLIN/TAZOB 2.25 GM 2.25 GM in DEXTROSE 5%-WATER - 50 ML IVPB SCH ×3 (03:00→17:07)
[2023-07-03] MEDS: AMINO ACIDS/PROTEIN HYDROLYS 30 ML LIQUID.PKT PO SCH ×2 (07:57→17:07)
[2023-07-03 08:11] LABS: HEMOGLOBIN 7.7 GM/dL (11.7-16.9); MCH 32.3 pg (25.7-33.7); MCHC 33.7 g/dl (32.0-35.9); MEAN PLT VOLUME 7.8 fl (7.5-11.1); PLATELET COUNT 225 10^3/uL (134-434); RDW 15.6 % (11.9-15.9); WHITE BLOOD COUNT 5.7 K/mm3 (4.0-10.0)
[2023-07-03 08:20] LABS: POTASSIUM 4.5 mmol/L (3.5-5.1)
[2023-07-03 08:29] LABS: CALCIUM 7.6 mg/dL (8.5-10.1)
[2023-07-03 08:30] LABS: ALBUMIN 1.7 g/dl (3.4-5.0); BLOOD UREA NITROGEN 29.4 mg/dL (7-18)
[2023-07-03 08:33] LABS: CREATININE 2.6 mg/dL (0.55-1.3)
[2023-07-03 08:34] LABS: BILIRUBIN,TOTAL 0.5 mg/dL (0.2-1); TOT PROT 5.6 g/dl (6.4-8.2)
[2023-07-03] MEDS: NYSTATIN 100,000 UNIT/GM TOPICAL CREAM 15 GM TUBE TP SCH ×3 (09:35→21:42)
[2023-07-03] MEDS: COLLAGENASE CLOSTRIDIUM HIST. 30 GRAMS TUBE TP SCH ×2 (09:35→10:50)
[2023-07-03] MEDS: SODIUM BICARBONATE 650 MG TABLET PO SCH ×2 (09:36→21:42)
[2023-07-03] MEDS: amLODIPine BESYLATE 10 MG TABLET (FP) PO SCH (09:36)
[2023-07-03] MEDS: LACTOBACILLUS ACIDOPHILUS 1 TABLET PO SCH (09:36)
[2023-07-03] MEDS: VITAMIN B COMP W-C 1 EA TABLET (NEPHRO-VITE) PO SCH (09:36)
[2023-07-03] MEDS: PANTOPRAZOLE SODIUM 40 MG VIAL IVPUSH SCH ×2 (09:36→21:42)
[2023-07-04] MEDS: PIPERACILLIN/TAZOB 2.25 GM 2.25 GM in DEXTROSE 5%-WATER - 50 ML IVPB SCH ×3 (03:25→17:45)
[2023-07-04] MEDS: AMINO ACIDS/PROTEIN HYDROLYS 30 ML LIQUID.PKT PO SCH ×2 (09:03→17:45)
[2023-07-04 09:34] LABS: BASO % 1.1 % (0-2.0); EOS % 11.2 % (0-4.5); HEMATOCRIT 23.1 % (35.4-49); HEMOGLOBIN 7.7 GM/dL (11.7-16.9); LYMPH % 21.9 % (8-40); MCHC 33.3 g/dl (32.0-35.9); MEAN CELL VOLUME 96.2 fl (80-96); MEAN PLT VOLUME 7.9 fl (7.5-11.1); MONO % 6.4 % (3.8-10.2); NEUT % 59.4 % (42.8-82.8); PLATELET COUNT 222 10^3/uL (134-434); RDW 15.2 % (11.9-15.9); WHITE BLOOD COUNT 5.4 K/mm3 (4.0-10.0)
[2023-07-04 09:39] LABS: INR 1.11 (0.83-1.09); PROTHROMBIN TIME (PATIENT) 12.9 SEC (9.7-13.0)
[2023-07-04 09:56] LABS: POTASSIUM 4.3 mmol/L (3.5-5.1)
[2023-07-04] MEDS: NYSTATIN 100,000 UNIT/GM TOPICAL CREAM 15 GM TUBE TP SCH ×2 (09:57→21:59)
[2023-07-04] MEDS: SODIUM BICARBONATE 650 MG TABLET PO SCH ×2 (09:58→22:00)
[2023-07-04] MEDS: amLODIPine BESYLATE 10 MG TABLET (FP) PO SCH (09:58)
[2023-07-04] MEDS: LACTOBACILLUS ACIDOPHILUS 1 TABLET PO SCH (09:58)
[2023-07-04] MEDS: VITAMIN B COMP W-C 1 EA TABLET (NEPHRO-VITE) PO SCH (09:58)
[2023-07-04] MEDS: PANTOPRAZOLE SODIUM 40 MG VIAL IVPUSH SCH (09:58)
[2023-07-04 10:02] LABS: ALBUMIN 1.8 g/dl (3.4-5.0)
[2023-07-04 10:03] LABS: BLOOD UREA NITROGEN 33.5 mg/dL (7-18)
[2023-07-04 10:05] LABS: CREATININE 2.5 mg/dL (0.55-1.3)
[2023-07-04 10:07] LABS: BILIRUBIN,TOTAL 0.4 mg/dL (0.2-1); TOT PROT 5.8 g/dl (6.4-8.2)
[2023-07-04 10:09] LABS: CALCIUM 8.9 mg/dL (8.5-10.1)
[2023-07-04] MEDS: COLLAGENASE CLOSTRIDIUM HIST. 30 GRAMS TUBE TP SCH (10:28)
[2023-07-04] MEDS: LISINOPRIL 5 MG TABLET PO SCH (16:19)
[2023-07-05] MEDS: PIPERACILLIN/TAZOB 2.25 GM 2.25 GM in DEXTROSE 5%-WATER - 50 ML IVPB SCH ×4 (03:54→17:31)
[2023-07-05] MEDS: AMINO ACIDS/PROTEIN HYDROLYS 30 ML LIQUID.PKT PO SCH ×2 (08:22→16:52)
[2023-07-05 09:03] LABS: BASO % 1.1 % (0-2.0); EOS % 11.1 % (0-4.5); HEMATOCRIT 23.2 % (35.4-49); HEMOGLOBIN 8.1 GM/dL (11.7-16.9); LYMPH % 22.1 % (8-40); MCH 32.7 pg (25.7-33.7); MCHC 34.9 g/dl (32.0-35.9); MEAN CELL VOLUME 93.7 fl (80-96); MEAN PLT VOLUME 7.7 fl (7.5-11.1); MONO % 6.2 % (3.8-10.2); NEUT % 59.5 % (42.8-82.8); PLATELET COUNT 228 10^3/uL (134-434); RBC 2.48 M/mm3 (4.00-5.60); RDW 15.2 % (11.9-15.9); WHITE BLOOD COUNT 5.7 K/mm3 (4.0-10.0)
[2023-07-05 09:14] LABS: POTASSIUM 4.1 mmol/L (3.5-5.1)
[2023-07-05] MEDS: LISINOPRIL 5 MG TABLET PO SCH (09:18)
[2023-07-05] MEDS: VITAMIN B COMP W-C 1 EA TABLET (NEPHRO-VITE) PO SCH (09:18)
[2023-07-05] MEDS: SODIUM BICARBONATE 650 MG TABLET PO SCH ×2 (09:18→22:21)
[2023-07-05] MEDS: LACTOBACILLUS ACIDOPHILUS 1 TABLET PO SCH (09:18)
[2023-07-05] MEDS: amLODIPine BESYLATE 10 MG TABLET (FP) PO SCH (09:18)
[2023-07-05 09:19] LABS: ALBUMIN 1.8 g/dl (3.4-5.0)
[2023-07-05 09:20] LABS: BLOOD UREA NITROGEN 35.8 mg/dL (7-18); CALCIUM 7.6 mg/dL (8.5-10.1); MAGNESIUM 2.4 mg/dL (1.8-2.4)
[2023-07-05 09:22] LABS: CREATININE 2.4 mg/dL (0.55-1.3); PHOSPHOROUS 4.5 mg/dL (2.5-4.9)
[2023-07-05 09:24] LABS: BILIRUBIN,TOTAL 0.3 mg/dL (0.2-1); TOT PROT 5.9 g/dl (6.4-8.2)
[2023-07-05] MEDS: NYSTATIN 100,000 UNIT/GM TOPICAL CREAM 15 GM TUBE TP SCH ×2 (09:57→22:21)
[2023-07-05] MEDS: COLLAGENASE CLOSTRIDIUM HIST. 30 GRAMS TUBE TP SCH (09:57)
[2023-07-05] MEDS ORDERED: BISACODYL 5 MG TABLET.DR (FP) PO ONE (16:00)
[2023-07-05] MEDS ORDERED: PEG 3350/NA SULF BICARB CL/KCL 4000 ML SOLN.RECON PO ONE (17:00)
[2023-07-06] MEDS: PIPERACILLIN/TAZOB 2.25 GM 2.25 GM in DEXTROSE 5%-WATER - 50 ML IVPB SCH (02:12)
[2023-07-06] MEDS: AMINO ACIDS/PROTEIN HYDROLYS 30 ML LIQUID.PKT PO SCH ×2 (09:06→17:15)
[2023-07-06] MEDS: COLLAGENASE CLOSTRIDIUM HIST. 30 GRAMS TUBE TP SCH (09:56)
[2023-07-06] MEDS: LISINOPRIL 5 MG TABLET PO SCH (09:56)
[2023-07-06] MEDS: amLODIPine BESYLATE 10 MG TABLET (FP) PO SCH (09:56)
[2023-07-06] MEDS: LACTOBACILLUS ACIDOPHILUS 1 TABLET PO SCH (09:56)
[2023-07-06] MEDS: NYSTATIN 100,000 UNIT/GM TOPICAL CREAM 15 GM TUBE TP SCH ×2 (09:56→21:54)
[2023-07-06] MEDS: SODIUM BICARBONATE 650 MG TABLET PO SCH ×2 (09:56→21:53)
[2023-07-06] MEDS: VITAMIN B COMP W-C 1 EA TABLET (NEPHRO-VITE) PO SCH (09:56)
[2023-07-06 10:44] LABS: BASO % 1.7 % (0-2.0); EOS % 11.1 % (0-4.5); HEMOGLOBIN 8.3 GM/dL (11.7-16.9); LYMPH % 17.8 % (8-40); MCH 32.5 pg (25.7-33.7); MCHC 34.8 g/dl (32.0-35.9); MEAN CELL VOLUME 93.4 fl (80-96); MONO % 6.4 % (3.8-10.2); PLATELET COUNT 210 10^3/uL (134-434); RBC 2.57 M/mm3 (4.00-5.60); RDW 15.2 % (11.9-15.9); WHITE BLOOD COUNT 4.7 K/mm3 (4.0-10.0)
[2023-07-06 11:40] LABS: CALCIUM 8.1 mg/dL (8.5-10.1)
[2023-07-06 11:41] LABS: BLOOD UREA NITROGEN 35.1 mg/dL (7-18)
[2023-07-06 11:44] LABS: CREATININE 2.1 mg/dL (0.55-1.3)
[2023-07-06] MEDS ORDERED: SIMETHICONE 40 MG/0.6 ML BOTTLE ONE (14:36)
[2023-07-07] MEDS: AMINO ACIDS/PROTEIN HYDROLYS 30 ML LIQUID.PKT PO SCH ×2 (08:05→16:38)
[2023-07-07 09:17] LABS: BASO % 1.3 % (0-2.0); EOS % 13.4 % (0-4.5); HEMOGLOBIN 8.6 GM/dL (11.7-16.9); LYMPH % 19.4 % (8-40); MCH 32.4 pg (25.7-33.7); MCHC 34.5 g/dl (32.0-35.9); MEAN CELL VOLUME 93.9 fl (80-96); MEAN PLT VOLUME 8.2 fl (7.5-11.1); MONO % 5.8 % (3.8-10.2); NEUT % 60.1 % (42.8-82.8); PLATELET COUNT 240 10^3/uL (134-434); RBC 2.66 M/mm3 (4.00-5.60); RDW 15.1 % (11.9-15.9); WHITE BLOOD COUNT 6.1 K/mm3 (4.0-10.0)
[2023-07-07 09:22] LABS: INR 1.1 (0.83-1.09); PROTHROMBIN TIME (PATIENT) 12.7 SEC (9.7-13.0)
[2023-07-07] MEDS: LISINOPRIL 5 MG TABLET PO SCH (09:43)
[2023-07-07] MEDS: VITAMIN B COMP W-C 1 EA TABLET (NEPHRO-VITE) PO SCH (09:44)
[2023-07-07] MEDS: amLODIPine BESYLATE 10 MG TABLET (FP) PO SCH (09:44)
[2023-07-07] MEDS: LACTOBACILLUS ACIDOPHILUS 1 TABLET PO SCH (09:44)
[2023-07-07] MEDS: NYSTATIN 100,000 UNIT/GM TOPICAL CREAM 15 GM TUBE TP SCH ×2 (09:45→21:50)
[2023-07-07] MEDS: COLLAGENASE CLOSTRIDIUM HIST. 30 GRAMS TUBE TP SCH (09:45)
[2023-07-07] MEDS: SODIUM BICARBONATE 650 MG TABLET PO SCH ×2 (09:45→21:50)
[2023-07-07 09:48] LABS: POTASSIUM 4.2 mmol/L (3.5-5.1)
[2023-07-07 09:56] LABS: ALBUMIN 1.9 g/dl (3.4-5.0); CREATININE 2.1 mg/dL (0.55-1.3)
[2023-07-07 09:57] LABS: BILIRUBIN,TOTAL 0.2 mg/dL (0.2-1); BLOOD UREA NITROGEN 35.1 mg/dL (7-18)
[2023-07-07 09:58] LABS: TOT PROT 6.1 g/dl (6.4-8.2)
[2023-07-07 09:59] LABS: CALCIUM 8.3 mg/dL (8.5-10.1)
[2023-07-07] MEDS ORDERED: ACETAMINOPHEN 325 MG TABLET (FP) PO PRN (17:41)
[2023-07-08] MEDS ORDERED: GENTAMICIN SO4 80 MG/2 ML VIAL ONE (07:17)
[2023-07-08] MEDS ORDERED: VANCOMYCIN 1,000 MG VIAL (RESTRICTED TO ID ONLY) ONE (07:17)
[2023-07-08] MEDS ORDERED: LIDOCAINE HCL 1%, 10 MG/ML (20ML VIAL) ONE (07:17)
[2023-07-08] MEDS ORDERED: BUPIVACAINE HCL/PF 0.5% (5MG/ML) 10 ML VIAL ONE (07:18)
[2023-07-08] MEDS ORDERED: PROPOFOL 40 ML ONE (07:19)
[2023-07-08] MEDS ORDERED: GENTAMICIN SO4 80 MG/2 ML VIAL IVPB ONE (07:33)
[2023-07-08] MEDS ORDERED: LIDOCAINE HCL 1%, 10 MG/ML (20ML VIAL) NR ONE (07:36)
[2023-07-08] MEDS ORDERED: MIDAZOLAM HCL 2 MG/2 ML SINGLE DOSE VIAL ONE (07:38)
[2023-07-08] MEDS ORDERED: BUPIVACAINE HCL/PF 0.5% (5MG/ML) 10 ML VIAL IJ ONE (07:41)
[2023-07-08] MEDS ORDERED: FENTANYL CITRATE/PF 50 MCG/ML VIAL ONE (07:44)
[2023-07-08] MEDS ORDERED: THROMBIN (BOVINE) 5,000 UNIT VIAL TP ONE ×2 (07:48→08:00)
[2023-07-08] MEDS ORDERED: VANCOMYCIN 1,000 MG VIAL (RESTRICTED TO ID ONLY) IVPB ONE (08:10)
[2023-07-08] MEDS: AMINO ACIDS/PROTEIN HYDROLYS 30 ML LIQUID.PKT PO SCH ×2 (08:13→18:22)
[2023-07-08] MEDS ORDERED: VANCOMYCIN 1 GM in NS (PRE-DOCKED) 1,000 MG/250 ML (RESTRICTED TO ID ONLY) IVPB ONE (08:39)
[2023-07-08] MEDS ORDERED: hydrALAZINE HCL 20 MG/ML VIAL ONE (08:44)
[2023-07-08] MEDS ORDERED: ONDANSETRON 4 MG/2 ML VIAL IVPUSH PRN (08:52)
[2023-07-08] MEDS ORDERED: LACTATED RINGERS SOLUTION 1,000 ML IV SCH (09:00)
[2023-07-08 10:32] LABS: EOS % 11.8 % (0-4.5); HEMATOCRIT 23.3 % (35.4-49); HEMOGLOBIN 7.9 GM/dL (11.7-16.9); LYMPH % 19.6 % (8-40); MCH 32.3 pg (25.7-33.7); MCHC 34.1 g/dl (32.0-35.9); MEAN PLT VOLUME 8.3 fl (7.5-11.1); MONO % 7.5 % (3.8-10.2); NEUT % 60.1 % (42.8-82.8); PLATELET COUNT 204 10^3/uL (134-434); RBC 2.45 M/mm3 (4.00-5.60); WHITE BLOOD COUNT 6.3 K/mm3 (4.0-10.0)
[2023-07-08] MEDS: LISINOPRIL 5 MG TABLET PO SCH (10:49)
[2023-07-08] MEDS: SODIUM BICARBONATE 650 MG TABLET PO SCH ×2 (10:49→21:27)
[2023-07-08] MEDS: LACTOBACILLUS ACIDOPHILUS 1 TABLET PO SCH (10:49)
[2023-07-08] MEDS: VITAMIN B COMP W-C 1 EA TABLET (NEPHRO-VITE) PO SCH (10:49)
[2023-07-08] MEDS: amLODIPine BESYLATE 10 MG TABLET (FP) PO SCH (10:49)
[2023-07-08] MEDS: NYSTATIN 100,000 UNIT/GM TOPICAL CREAM 15 GM TUBE TP SCH ×2 (13:17→21:28)
[2023-07-08 13:26] LABS: BASO % 1.1 % (0-2.0); EOS % 9.4 % (0-4.5); HEMATOCRIT 23.9 % (35.4-49); HEMOGLOBIN 8.1 GM/dL (11.7-16.9); LYMPH % 14.6 % (8-40); MCH 32.6 pg (25.7-33.7); MEAN CELL VOLUME 95.9 fl (80-96); MEAN PLT VOLUME 8.4 fl (7.5-11.1); MONO % 8.1 % (3.8-10.2); NEUT % 66.8 % (42.8-82.8); PLATELET COUNT 204 10^3/uL (134-434); RBC 2.49 M/mm3 (4.00-5.60); RDW 15.4 % (11.9-15.9); WHITE BLOOD COUNT 7.7 K/mm3 (4.0-10.0)
[2023-07-08 13:54] LABS: POTASSIUM 3.9 mmol/L (3.5-5.1)
[2023-07-08 13:57] LABS: ALBUMIN 1.9 g/dl (3.4-5.0); BLOOD UREA NITROGEN 38.2 mg/dL (7-18)
[2023-07-08 13:59] LABS: CREATININE 2.1 mg/dL (0.55-1.3)
[2023-07-08 14:01] LABS: TOT PROT 5.8 g/dl (6.4-8.2)
[2023-07-08 14:02] LABS: BILIRUBIN,TOTAL 0.2 mg/dL (0.2-1)
[2023-07-08] MEDS: PIPERACILLIN/TAZOB 2.25 GM 2.25 GM in DEXTROSE 5%-WATER - 50 ML IVPB SCH (14:16)
[2023-07-08] MEDS: ACETAMINOPHEN 325 MG TABLET (FP) PO PRN (17:22)
[2023-07-09] MEDS: PIPERACILLIN/TAZOB 2.25 GM 2.25 GM in DEXTROSE 5%-WATER - 50 ML IVPB SCH ×2 (01:25→09:33)
[2023-07-09] MEDS ORDERED: PIPERACILLIN/TAZOB 2.25 GM 2.25 GM in DEXTROSE 5%-WATER - 50 ML IVPB SCH (02:00)
[2023-07-09 09:30] LABS: BASO % 0.9 % (0-2.0); EOS % 9.8 % (0-4.5); HEMATOCRIT 22.4 % (35.4-49); HEMOGLOBIN 7.7 GM/dL (11.7-16.9); LYMPH % 21.1 % (8-40); MCH 32.9 pg (25.7-33.7); MCHC 34.5 g/dl (32.0-35.9); MEAN CELL VOLUME 95.4 fl (80-96); MEAN PLT VOLUME 8.5 fl (7.5-11.1); MONO % 6.3 % (3.8-10.2); NEUT % 61.9 % (42.8-82.8); PLATELET COUNT 194 10^3/uL (134-434); RBC 2.35 M/mm3 (4.00-5.60); RDW 15.3 % (11.9-15.9); WHITE BLOOD COUNT 6.9 K/mm3 (4.0-10.0)
[2023-07-09] MEDS: LACTOBACILLUS ACIDOPHILUS 1 TABLET PO SCH (09:34)
[2023-07-09] MEDS: LISINOPRIL 5 MG TABLET PO SCH (09:34)
[2023-07-09] MEDS: AMINO ACIDS/PROTEIN HYDROLYS 30 ML LIQUID.PKT PO SCH ×2 (09:35→18:19)
[2023-07-09] MEDS: SODIUM BICARBONATE 650 MG TABLET PO SCH ×2 (09:35→22:00)
[2023-07-09] MEDS: amLODIPine BESYLATE 10 MG TABLET (FP) PO SCH (09:35)
[2023-07-09] MEDS: VITAMIN B COMP W-C 1 EA TABLET (NEPHRO-VITE) PO SCH (09:35)
[2023-07-09] MEDS: NYSTATIN 100,000 UNIT/GM TOPICAL CREAM 15 GM TUBE TP SCH ×2 (09:35→21:59)
[2023-07-09 10:05] LABS: POTASSIUM 4.1 mmol/L (3.5-5.1)
[2023-07-09 10:08] LABS: ALBUMIN 1.8 g/dl (3.4-5.0); BLOOD UREA NITROGEN 39.2 mg/dL (7-18); CALCIUM 7.9 mg/dL (8.5-10.1)
[2023-07-09 10:11] LABS: CREATININE 2.2 mg/dL (0.55-1.3)
[2023-07-09 10:13] LABS: BILIRUBIN,TOTAL 0.4 mg/dL (0.2-1); TOT PROT 5.7 g/dl (6.4-8.2)
[2023-07-09] MEDS: ACETAMINOPHEN 325 MG TABLET (FP) PO PRN (13:23)
[2023-07-09] MEDS: PIPERACILLIN/TAZOB 4.5 GM 4.5 GM in DEXTROSE 5%-WATER 100 ML IVPB SCH ×2 (16:19→22:00)
[2023-07-10] MEDS: PIPERACILLIN/TAZOB 4.5 GM 4.5 GM in DEXTROSE 5%-WATER 100 ML IVPB SCH ×3 (05:55→21:12)
[2023-07-10] MEDS: AMINO ACIDS/PROTEIN HYDROLYS 30 ML LIQUID.PKT PO SCH ×2 (09:07→16:51)
[2023-07-10 09:23] LABS: HEMATOCRIT 23.1 % (35.4-49); HEMOGLOBIN 7.8 GM/dL (11.7-16.9); MCH 32.5 pg (25.7-33.7); MCHC 33.9 g/dl (32.0-35.9); MEAN CELL VOLUME 95.9 fl (80-96); MEAN PLT VOLUME 8.6 fl (7.5-11.1); PLATELET COUNT 197 10^3/uL (134-434); RBC 2.41 M/mm3 (4.00-5.60); RDW 15.4 % (11.9-15.9); WHITE BLOOD COUNT 6.5 K/mm3 (4.0-10.0)
[2023-07-10 09:47] LABS: BLOOD UREA NITROGEN 41.4 mg/dL (7-18); CALCIUM 8.7 mg/dL (8.5-10.1)
[2023-07-10 09:50] LABS: CREATININE 2.5 mg/dL (0.55-1.3)
[2023-07-10] MEDS: SODIUM BICARBONATE 650 MG TABLET PO SCH ×2 (09:59→21:12)
[2023-07-10] MEDS: LISINOPRIL 5 MG TABLET PO SCH (09:59)
[2023-07-10] MEDS: amLODIPine BESYLATE 10 MG TABLET (FP) PO SCH (10:00)
[2023-07-10] MEDS: LACTOBACILLUS ACIDOPHILUS 1 TABLET PO SCH (10:00)
[2023-07-10] MEDS: VITAMIN B COMP W-C 1 EA TABLET (NEPHRO-VITE) PO SCH (10:00)
[2023-07-10] MEDS: NYSTATIN 100,000 UNIT/GM TOPICAL CREAM 15 GM TUBE TP SCH (10:01)
[2023-07-10] MEDS: ACETAMINOPHEN 325 MG TABLET (FP) PO PRN (14:45)
[2023-07-11] MEDS: ACETAMINOPHEN 325 MG TABLET (FP) PO PRN (02:41)
[2023-07-11] MEDS: NYSTATIN 100,000 UNIT/GM TOPICAL CREAM 15 GM TUBE TP SCH ×3 (04:25→23:19)
[2023-07-11] MEDS: PIPERACILLIN/TAZOB 4.5 GM 4.5 GM in DEXTROSE 5%-WATER 100 ML IVPB SCH ×2 (05:12→14:35)
[2023-07-11] MEDS: VITAMIN B COMP W-C 1 EA TABLET (NEPHRO-VITE) PO SCH (10:26)
[2023-07-11] MEDS: LACTOBACILLUS ACIDOPHILUS 1 TABLET PO SCH (10:26)
[2023-07-11] MEDS: SODIUM BICARBONATE 650 MG TABLET PO SCH ×2 (10:26→22:10)
[2023-07-11] MEDS: amLODIPine BESYLATE 10 MG TABLET (FP) PO SCH (10:26)
[2023-07-11] MEDS: LISINOPRIL 5 MG TABLET PO SCH (10:26)
[2023-07-11] MEDS: AMINO ACIDS/PROTEIN HYDROLYS 30 ML LIQUID.PKT PO SCH ×2 (10:26→17:03)
[2023-07-11] MEDS ORDERED: DAPTOMYCIN 600 MG in SODIUM CHLORIDE 50 ML IVPB SCH (16:00)
[2023-07-11] MEDS: DAPTOMYCIN 600 MG in SODIUM CHLORIDE 50 ML IVPB SCH (18:15)
[2023-07-12] MEDS: AMINO ACIDS/PROTEIN HYDROLYS 30 ML LIQUID.PKT PO SCH ×2 (08:47→17:06)
[2023-07-12 09:41] LABS: BASO % 1.2 % (0-2.0); EOS % 13.9 % (0-4.5); HEMATOCRIT 23.7 % (35.4-49); HEMOGLOBIN 8.1 GM/dL (11.7-16.9); LYMPH % 19.4 % (8-40); MCH 32.9 pg (25.7-33.7); MCHC 34.4 g/dl (32.0-35.9); MEAN CELL VOLUME 95.7 fl (80-96); MEAN PLT VOLUME 8.7 fl (7.5-11.1); MONO % 5.4 % (3.8-10.2); NEUT % 60.1 % (42.8-82.8); PLATELET COUNT 212 10^3/uL (134-434); RBC 2.47 M/mm3 (4.00-5.60); RDW 15.3 % (11.9-15.9); WHITE BLOOD COUNT 6.1 K/mm3 (4.0-10.0)
[2023-07-12] MEDS: SODIUM BICARBONATE 650 MG TABLET PO SCH ×2 (09:51→21:58)
[2023-07-12] MEDS: LACTOBACILLUS ACIDOPHILUS 1 TABLET PO SCH (09:51)
[2023-07-12] MEDS: LISINOPRIL 5 MG TABLET PO SCH (09:51)
[2023-07-12] MEDS: VITAMIN B COMP W-C 1 EA TABLET (NEPHRO-VITE) PO SCH (09:51)
[2023-07-12] MEDS: amLODIPine BESYLATE 10 MG TABLET (FP) PO SCH (09:52)
[2023-07-12] MEDS: NYSTATIN 100,000 UNIT/GM TOPICAL CREAM 15 GM TUBE TP SCH ×2 (09:52→21:59)
[2023-07-12 09:57] LABS: POTASSIUM 3.9 mmol/L (3.5-5.1)
[2023-07-12 10:06] LABS: BLOOD UREA NITROGEN 45.1 mg/dL (7-18); CALCIUM 7.8 mg/dL (8.5-10.1)
[2023-07-12 10:07] LABS: ALBUMIN 1.9 g/dl (3.4-5.0); MAGNESIUM 2.6 mg/dL (1.8-2.4)
[2023-07-12 10:08] LABS: PHOSPHOROUS 4.8 mg/dL (2.5-4.9)
[2023-07-12 10:09] LABS: BILIRUBIN,TOTAL 0.5 mg/dL (0.2-1); CREATININE 2.6 mg/dL (0.55-1.3); TOT PROT 6.2 g/dl (6.4-8.2)
[2023-07-12] MEDS: ACETAMINOPHEN 325 MG TABLET (FP) PO PRN (15:33)
[2023-07-12] MEDS: DAPTOMYCIN 600 MG in SODIUM CHLORIDE 50 ML IVPB SCH (17:39)
[2023-07-13] MEDS: LISINOPRIL 5 MG TABLET PO SCH (10:01)
[2023-07-13] MEDS: AMINO ACIDS/PROTEIN HYDROLYS 30 ML LIQUID.PKT PO SCH ×2 (10:01→17:39)
[2023-07-13] MEDS: LACTOBACILLUS ACIDOPHILUS 1 TABLET PO SCH (10:01)
[2023-07-13] MEDS: VITAMIN B COMP W-C 1 EA TABLET (NEPHRO-VITE) PO SCH (10:01)
[2023-07-13] MEDS: SODIUM BICARBONATE 650 MG TABLET PO SCH ×2 (10:01→21:01)
[2023-07-13] MEDS: amLODIPine BESYLATE 10 MG TABLET (FP) PO SCH (10:01)
[2023-07-13] MEDS: NYSTATIN 100,000 UNIT/GM TOPICAL CREAM 15 GM TUBE TP SCH ×2 (10:01→21:01)
[2023-07-13 10:59] LABS: BASO % 1.3 % (0-2.0); EOS % 14.6 % (0-4.5); HEMOGLOBIN 7.3 GM/dL (11.7-16.9); LYMPH % 18.3 % (8-40); MCH 33.1 pg (25.7-33.7); MCHC 34.4 g/dl (32.0-35.9); MEAN PLT VOLUME 8.8 fl (7.5-11.1); MONO % 6.8 % (3.8-10.2); PLATELET COUNT 168 10^3/uL (134-434); RBC 2.19 M/mm3 (4.00-5.60); RDW 15.6 % (11.9-15.9); WHITE BLOOD COUNT 4.9 K/mm3 (4.0-10.0)
[2023-07-13 11:14] LABS: POTASSIUM 3.8 mmol/L (3.5-5.1)
[2023-07-13 11:20] LABS: CALCIUM 7.8 mg/dL (8.5-10.1)
[2023-07-13 11:21] LABS: ALBUMIN 1.8 g/dl (3.4-5.0); BLOOD UREA NITROGEN 48.4 mg/dL (7-18); MAGNESIUM 2.6 mg/dL (1.8-2.4)
[2023-07-13 11:24] LABS: CREATININE 2.3 mg/dL (0.55-1.3); PHOSPHOROUS 4.6 mg/dL (2.5-4.9)
[2023-07-13 11:26] LABS: BILIRUBIN,TOTAL 0.4 mg/dL (0.2-1)
[2023-07-13 11:27] LABS: TOT PROT 5.6 g/dl (6.4-8.2)
[2023-07-13] MEDS ORDERED: LISINOPRIL 5 MG TABLET PO SCH (12:13)
[2023-07-13 13:08] LABS: ALPHA-1 FOR UPE 6.4 % (.); TOTAL PROTEIN, URINE 970.7 mg/dL (Not Estab.)
[2023-07-13] MEDS: DAPTOMYCIN 600 MG in SODIUM CHLORIDE 50 ML IVPB SCH (17:46)
[2023-07-14 01:18] VITALS: RESP 20
[2023-07-14 06:26] VITALS: BP 155/74; PULSE 89; TEMP 99.1
[2023-07-14] MEDS: amLODIPine BESYLATE 10 MG TABLET (FP) PO SCH (09:23)
[2023-07-14] MEDS: NYSTATIN 100,000 UNIT/GM TOPICAL CREAM 15 GM TUBE TP SCH (09:23)
[2023-07-14] MEDS: SODIUM BICARBONATE 650 MG TABLET PO SCH (09:23)
[2023-07-14] MEDS: LACTOBACILLUS ACIDOPHILUS 1 TABLET PO SCH (09:23)
[2023-07-14] MEDS: VITAMIN B COMP W-C 1 EA TABLET (NEPHRO-VITE) PO SCH (09:23)
[2023-07-14] MEDS: AMINO ACIDS/PROTEIN HYDROLYS 30 ML LIQUID.PKT PO SCH (09:23)
[2023-07-14 09:27] LABS: EOS % 13.6 % (0-4.5); HEMATOCRIT 23.1 % (35.4-49); HEMOGLOBIN 7.9 GM/dL (11.7-16.9); LYMPH % 18.3 % (8-40); MCH 32.8 pg (25.7-33.7); MCHC 34.3 g/dl (32.0-35.9); MEAN CELL VOLUME 95.8 fl (80-96); MEAN PLT VOLUME 8.7 fl (7.5-11.1); MONO % 6.7 % (3.8-10.2); NEUT % 60.4 % (42.8-82.8); PLATELET COUNT 178 10^3/uL (134-434); RBC 2.41 M/mm3 (4.00-5.60); RDW 15.1 % (11.9-15.9); WHITE BLOOD COUNT 5.7 K/mm3 (4.0-10.0)
[2023-07-14 09:40] LABS: POTASSIUM 3.8 mmol/L (3.5-5.1)
[2023-07-14 09:46] LABS: CALCIUM 8.1 mg/dL (8.5-10.1)
[2023-07-14 09:47] LABS: BLOOD UREA NITROGEN 52.6 mg/dL (7-18)
[2023-07-14 09:49] LABS: CREATININE 2.5 mg/dL (0.55-1.3)
[2023-07-14 09:51] LABS: TOT PROT 6.2 g/dl (6.4-8.2)
[2023-07-14 09:52] LABS: BILIRUBIN,TOTAL 0.4 mg/dL (0.2-1)
== END 2023-07-14 14:23 | disposition home or self-care (01) | DRG 305 ==
LOC: JER 14:12 → JERBED 15:01 → J4S 22:57 → J5S 07-02 23:59
PROVIDERS: ADMIT Internal Medicine
PROC: 0QBN3ZX Excision of Right Metatarsal, Percutaneous Approach, Diagnostic (ICD-10-PCS; 2023-06-30)
PROC: 3E00X29 Introduction of Other Anti-infective into Skin and Mucous Membranes, External Approach (ICD-10-PCS; 2023-06-30)
PROC: 30233N1 Transfusion of Nonautologous Red Blood Cells into Peripheral Vein, Percutaneous Approach (ICD-10-PCS; 2023-06-30)
PROC: 0DB58ZX Excision of Esophagus, Via Natural or Artificial Opening Endoscopic, Diagnostic (ICD-10-PCS; 2023-07-06)
PROC: 0DB68ZX Excision of Stomach, Via Natural or Artificial Opening Endoscopic, Diagnostic (ICD-10-PCS; 2023-07-06)
PROC: 0DJD8ZZ Inspection of Lower Intestinal Tract, Via Natural or Artificial Opening Endoscopic (ICD-10-PCS; 2023-07-06)
PROC: 0Y6M0Z9 Detachment at Right Foot, Partial 1st Ray, Open Approach (ICD-10-PCS; principal; 2023-07-08 07:30)
DX: T87.81 Dehiscence of amputation stump (principal); Y83.8 Other surgical procedures as the cause of abnormal reaction of the patient, or of later complication, without mention of misadventure at the time of the procedure; I12.9 Hypertensive chronic kidney disease with stage 1 through stage 4 chronic kidney disease, or unspecified chronic kidney disease; E11.22 Type 2 diabetes mellitus with diabetic chronic kidney disease; N18.9 Chronic kidney disease, unspecified; A63.0 Anogenital (venereal) warts; D63.1 Anemia in chronic kidney disease; K70.31 Alcoholic cirrhosis of liver with ascites; K80.20 Calculus of gallbladder without cholecystitis without obstruction; E11.621 Type 2 diabetes mellitus with foot ulcer; L97.518 Non-pressure chronic ulcer of other part of right foot with other specified severity; D68.9 Coagulation defect, unspecified; E87.5 Hyperkalemia; E11.69 Type 2 diabetes mellitus with other specified complication; M86.8X6 Other osteomyelitis, lower leg; B95.62 Methicillin resistant Staphylococcus aureus infection as the cause of diseases classified elsewhere; L03.115 Cellulitis of right lower limb; R74.8 Abnormal levels of other serum enzymes; R80.9 Proteinuria, unspecified; D89.2 Hypergammaglobulinemia, unspecified; K29.70 Gastritis, unspecified, without bleeding; D62 Acute posthemorrhagic anemia; N17.9 Acute kidney failure, unspecified; I87.2 Venous insufficiency (chronic) (peripheral)
CPT/HCPCS: 36415; 36430; 71046-TC-FY; 73630-TC-RT-FY; 73718-TC-RT; 76705-TC; 80048; 80053; 81003; 82105; 82272; 82570; 82728; 82784; 82962; 83540; 83550; 83735; 84100; 84155; 84156; 84165; 84166; 85025; 85027; 85610; 85651; 85730; 86140; 86334; 86705; 86708; 86803; 86850; 86900; 86901; 86922; 87040; 87070; 87075; 87077; 87086; 87106; 87186; 87205; 87340; 87517; 87635; 88305-TC; 88311-TC; 93005; 93010; 93971-TC; 94760; 97116-GP; 97161-GP; 99285-25; C1713; G0463-25; J0878; J1644; P9038; P9058

== ENCOUNTER 2023-07-15 12:53 | Day surgery (SDC) | payer OTHER ==
[2023-07-15] MEDS ORDERED: DALBAVANCIN HCL 1,500 MG in DEXTROSE 5%-WATER - 500 ML IVPB ONE (13:30)
[2023-07-15 14:35] VITALS: BP 143/65; PULSE 86; RESP 16; TEMP 98.4
== END 2023-07-15 14:35 | disposition home or self-care (01) ==
LOC: FINFUSION 12:53 → FM/S 12:56 → FINFUSION 14:35
PROVIDERS: ATTEND Internal Medicine Infectious Disease
DX: M86.8X7 Other osteomyelitis, ankle and foot (principal)
CPT/HCPCS: 96365; J0875

== ENCOUNTER 2023-07-22 11:33 | Day surgery (SDC) | payer OTHER ==
[2023-07-22] MEDS ORDERED: DALBAVANCIN HCL 1,500 MG in DEXTROSE 5%-WATER - 500 ML IVPB ONE (12:00)
[2023-07-22 13:37] VITALS: BP 145/62; PULSE 84; RESP 20; TEMP 98.9
== END 2023-07-22 12:50 | disposition home or self-care (01) ==
LOC: FINFUSION 11:33 → FM/S 11:34 → FINFUSION 12:50
PROVIDERS: ATTEND Internal Medicine Infectious Disease
DX: M86.8X7 Other osteomyelitis, ankle and foot (principal)
CPT/HCPCS: 96365; J0875

== ENCOUNTER 2023-09-07 04:36 | Day surgery (SDC) | payer OTHER ==
[2023-09-06 11:06] VITALS: BMI 30.9
[2023-09-07] MEDS ORDERED: MIDAZOLAM HCL 2 MG/2 ML SINGLE DOSE VIAL ONE (10:40)
[2023-09-07] MEDS: FENTANYL CITRATE/PF 50 MCG/ML VIAL IVPUSH ONE ×2 (11:25→11:35)
[2023-09-07] MEDS: MIDAZOLAM HCL 2 MG/2 ML SINGLE DOSE VIAL IVPUSH ONE ×2 (11:25→11:35)
[2023-09-07 12:44] VITALS: RESP 20
[2023-09-07 16:02] VITALS: BP 160/78; PULSE 86; TEMP 98
== END 2023-09-07 14:55 | disposition home or self-care (01) ==
LOC: JRADIR 04:36
PROVIDERS: ATTEND Internal Medicine
PROC: 0TB03ZX Excision of Right Kidney, Percutaneous Approach, Diagnostic (ICD-10-PCS; principal; 2023-09-07)
DX: E11.21 Type 2 diabetes mellitus with diabetic nephropathy (principal); I12.9 Hypertensive chronic kidney disease with stage 1 through stage 4 chronic kidney disease, or unspecified chronic kidney disease; N18.4 Chronic kidney disease, stage 4 (severe)
CPT/HCPCS: 50200; 88300-TC; 88329

== ENCOUNTER 2023-09-14 04:21 | Day surgery (SDC) | payer OTHER ==
[2023-09-12 14:47] VITALS: BMI 26.3
[2023-09-14] MEDS ORDERED: BACITRACIN ZINC 15 GM TUBE TOPICAL OINTMENT ONE (12:35)
[2023-09-14] MEDS ORDERED: BUPIVACAINE HCL/PF 0.5% (5MG/ML) 10 ML VIAL ONE (12:36)
[2023-09-14] MEDS ORDERED: LIDOCAINE HCL/PF 2% SDV 5ML VIAL ONE (12:37)
[2023-09-14] MEDS ORDERED: PROPOFOL 20 ML ONE (12:37)
[2023-09-14] MEDS ORDERED: MIDAZOLAM HCL 2 MG/2 ML SINGLE DOSE VIAL ONE (12:38)
[2023-09-14] MEDS ORDERED: PROPOFOL 40 ML ONE (13:12)
[2023-09-14] MEDS ORDERED: DEXAMETHASONE SOD PHOSPHATE 4 MG/1 ML VIAL ONE (13:38)
[2023-09-14] MEDS ORDERED: cefOXitin SODIUM 2 GM VIAL (RESTRICTED TO ID) IVPB ONE (13:39)
[2023-09-14] MEDS: cefOXitin SODIUM 2 GM VIAL (RESTRICTED TO ID) IVPB ONE (13:40)
[2023-09-14] MEDS ORDERED: LIDOCAINE 1%/EPI 1:100000 (20 ML MULTI DOSE VIAL) ONE (13:43)
[2023-09-14] MEDS: BUPIVACAINE HCL/PF 0.5% (5MG/ML) 10 ML VIAL IJ ONE (13:52)
[2023-09-14] MEDS: LIDOCAINE 1%/EPI 1:100000 (20 ML MULTI DOSE VIAL) IJ ONE (13:52)
[2023-09-14] MEDS ORDERED: ROCURONIUM BROMIDE 50 MG/5 ML SYRINGE ONE (13:54)
[2023-09-14] MEDS ORDERED: KETOROLAC TROMETHAMINE 30 MG/1 ML VIAL ONE (14:26)
[2023-09-14] MEDS ORDERED: ONDANSETRON 4 MG/2 ML VIAL ONE (14:26)
[2023-09-14] MEDS ORDERED: oxyCODONE HCL 5 MG TABLET PO PRN ×2 (14:46)
[2023-09-14] MEDS ORDERED: ONDANSETRON 4 MG/2 ML VIAL IVPUSH PRN (14:46)
[2023-09-14] MEDS ORDERED: PROMETHAZINE HCL 25 MG/1 ML VIAL IVPB PRN (14:46)
[2023-09-14] MEDS ORDERED: LACTATED RINGERS SOLUTION 1,000 ML IV SCH (15:00)
[2023-09-14] MEDS ORDERED: ACETAMINOPHEN INJECTION 100 ML IVPB ONE (15:06)
[2023-09-14] MEDS: ACETAMINOPHEN 1000 MG/100 ML BAG IVPB ONE (15:10)
[2023-09-14 16:28] VITALS: RESP 18
[2023-09-14 16:42] VITALS: BP 150/74; PULSE 72; TEMP 97.5
== END 2023-09-14 17:55 | disposition home or self-care (01) ==
LOC: JASU-SURG 04:21
PROVIDERS: ATTEND Colon & Rectal Surgery
PROC: 0JBB0ZZ Excision of Perineum Subcutaneous Tissue and Fascia, Open Approach (ICD-10-PCS; principal; 2023-09-14 13:00)
DX: D04.5 Carcinoma in situ of skin of trunk (principal); A63.0 Anogenital (venereal) warts
CPT/HCPCS: 88305-TC; 94760; J0131

== ENCOUNTER 2023-09-15 02:39 | Emergency (ER) | payer OTHER ==
[2023-09-15 02:55] VITALS: BMI 30.7
[2023-09-15 06:12] LABS: BASO % 0.3 % (0-2.0); HEMATOCRIT 25.5 % (35.4-49); HEMOGLOBIN 8.8 GM/dL (11.7-16.9); LYMPH % 8.3 % (8-40); MCH 32.7 pg (25.7-33.7); MCHC 34.4 g/dl (32.0-35.9); MEAN PLT VOLUME 8.1 fl (7.5-11.1); MONO % 4.2 % (3.8-10.2); NEUT % 87.2 % (42.8-82.8); PLATELET COUNT 159 10^3/uL (134-434); RBC 2.68 M/mm3 (4.00-5.60); RDW 14.9 % (11.9-15.9); WHITE BLOOD COUNT 5.7 K/mm3 (4.0-10.0)
[2023-09-15 06:22] LABS: INR 1.06 (0.83-1.09); PROTHROMBIN TIME (PATIENT) 12.3 SEC (9.7-13.0)
[2023-09-15 06:24] LABS: ACTIVATED PTT 33.7 SECONDS (25.2-36.5); POTASSIUM 5.2 mmol/L (3.5-5.1)
[2023-09-15 06:26] LABS: ALBUMIN 2.3 g/dl (3.4-5.0); BLOOD UREA NITROGEN 42.6 mg/dL (7-18); CALCIUM 7.7 mg/dL (8.5-10.1)
[2023-09-15 06:29] LABS: CREATININE 2.7 mg/dL (0.55-1.3)
[2023-09-15 06:31] LABS: BILIRUBIN,TOTAL 0.3 mg/dL (0.2-1); TOT PROT 5.7 g/dl (6.4-8.2)
[2023-09-15 09:27] VITALS: BP 167/79; PULSE 77; RESP 16; TEMP 97.7
[2023-09-15 10:12] LABS: BASO % 0.2 % (0-2.0); HEMATOCRIT 25.2 % (35.4-49); HEMOGLOBIN 8.7 GM/dL (11.7-16.9); LYMPH % 9.8 % (8-40); MCH 32.9 pg (25.7-33.7); MCHC 34.6 g/dl (32.0-35.9); MEAN CELL VOLUME 95.1 fl (80-96); MEAN PLT VOLUME 8.2 fl (7.5-11.1); MONO % 5.8 % (3.8-10.2); NEUT % 84.2 % (42.8-82.8); PLATELET COUNT 157 10^3/uL (134-434); RBC 2.65 M/mm3 (4.00-5.60); RDW 15.1 % (11.9-15.9); WHITE BLOOD COUNT 7.2 K/mm3 (4.0-10.0)
== END 2023-09-15 10:58 | disposition home or self-care (01) ==
LOC: JER 02:39 → JERBED 05:45 → UNDOADMOB 05:45 → JER 10:58
DX: K91.840 Postprocedural hemorrhage of a digestive system organ or structure following a digestive system procedure (principal)
CPT/HCPCS: 36415; 80053; 85025; 85610; 85730; 86850; 86900; 86901; 93005; 93010; 99284-25

== ENCOUNTER 2023-10-13 14:44 | Emergency (ER) | payer OTHER ==
[2023-10-13 14:54] VITALS: BMI 30.7
[2023-10-13 19:33] LABS: BASO % 0.5 % (0-2.0); EOS % 0.8 % (0-4.5); HEMATOCRIT 22.7 % (35.4-49); HEMOGLOBIN 7.8 GM/dL (11.7-16.9); LYMPH % 12.7 % (8-40); MCH 32.3 pg (25.7-33.7); MCHC 34.3 g/dl (32.0-35.9); MEAN CELL VOLUME 94.2 fl (80-96); MEAN PLT VOLUME 7.9 fl (7.5-11.1); MONO % 6.5 % (3.8-10.2); NEUT % 79.5 % (42.8-82.8); PLATELET COUNT 174 10^3/uL (134-434); RBC 2.41 M/mm3 (4.00-5.60); RDW 15.6 % (11.9-15.9); WHITE BLOOD COUNT 6.9 K/mm3 (4.0-10.0)
[2023-10-13 19:49] VITALS: BP 152/87; PULSE 88; RESP 16; TEMP 97.6
[2023-10-13] MEDS: SODIUM CHLORIDE 0.9% 500 ML INFUS.BAG IV ONE (20:17)
== END 2023-10-13 20:52 | disposition home or self-care (01) ==
LOC: JER 14:44
DX: K62.5 Hemorrhage of anus and rectum (principal); L76.22 Postprocedural hemorrhage of skin and subcutaneous tissue following other procedure; R00.0 Tachycardia, unspecified
CPT/HCPCS: 36415; 85025; 99283-25